=== PATIENT | female | born 1990 | race Caucasian/White ===

== ENCOUNTER 2022-06-04 09:33 | Emergency (ER) | payer BC, SELFPAY ==
[2022-06-04 09:39] VITALS: BP 124/79; PULSE 100; RESP 18; TEMP 36.9; O2SAT 99; BMI 23.9
--- NOTE | 2022-06-04 09:55 | CRLHL7_ITS ---
For Patients: As a result of the Century Cures Act, medical imaging exams and procedure reports are released immediately into your electronic medical record. You may view this report before your referring provider. If you have questions, please contact your health care provider. DATE: 06/04/2022. CLINICAL HISTORY: Sinus pain and pressure. TECHNIQUE: Standard CT scanning of the paranasal sinuses was performed. COMPARISON: None available. FINDINGS: Moderate circumferential mucosal thickening of the maxillary sinuses. There is opacification of the bilateral maxillary ostia and ethmoid infundibula. Subtotal opacification of the right frontal sinus and mild mucosal thickening of the left maxillary sinus. There is opacification of the bilateral frontal sinus outflow tracts. Subtotal opacification of the bilateral ethmoid aircells. Very mild mucosal thickening of the right sphenoid sinus. The left sphenoid sinus is well aerated. The sphenoethmoidal recesses are patent. Mild sinusoidal curvature of the nasal septum. The mastoid air cells well aerated. 1.2 cm ovoid lucency within the superolateral left orbital rim. This is nonspecific but favored to reflect a benign etiology, such as a fibro-osseous lesion. IMPRESSION: 1. Bilateral ostiomeatal unit pattern of disease, as detailed above. 2. 1.2 cm ovoid lucency within the superior lateral left orbital rim. This is favored to reflect a benign etiology, such as a fibro-osseous lesion. Please note that all CT scans at this facility use dose modulation, iterative reconstruction, and/or weight-based dosing when appropriate to reduce radiation dose to as low as reasonably achievable. Dictated by Cesario Rosario MD @ 06/04/2022 10:56:37 AM (Electronically Signed)
--- NOTE | 2022-06-04 09:55 | ED.GENADULT ---
HPI - General Adult General Chief complaint: Headache/Migraine Stated complaint: Sinus pressure Time Seen by Provider: 06/04/22 09:47 History of Present Illness HPI narrative: This 32-year-old female comes in reporting facial pain and pressure around the area above and below her eyes. She states that she has had some sinus pain and pressure over the past couple months but it has worsened in the past few days. She does have cough and rhinorrhea. She does not report any fevers. Related Data Previous Rx's Medication Instructions Recorded amoxicillin 875 mg-potassium 1 tab PO BID #10 tabs 06/04/22 clavulanate 125 mg tablet ketorolac 10 mg tablet 10 mg PO Q8H 5 days #15 tabs 06/04/22 methylprednisolone 4 mg tablets in See Rx Instructions PO .COMPLEX 06/04/22 a dose pack (Medrol (Fransico)) #21 ea Allergies Allergy/AdvReac Type Severity Reaction Status Date / Time No Known Drug Allergies Allergy Verified 06/04/22 09:41 Review of Systems Status of ROS: Reports: 10 or more systems reviewed and unremarkable except as noted in History and below Narrative: Constitutional: No fevers, no weight gain or loss. Eyes: No discharge. No vision changes. HENT: No sore throat. Some mild left ear pain. Nasal congestion. Cardiovascular: No chest pain, no palpitations. Respiratory: No shortness of breath, no wheezes, no cough. Gastrointestinal: No abdominal pain, no vomiting, no diarrhea. Genitourinary: No dysuria, no hematuria. Musculoskeletal: Normal range of motion. Skin: No rashes, no pruritis. Neurological: No dizziness, weakness, sensory change, speech change. Endo/Heme/Allergies: No bruising or bleeding. No polydipsia. Pysch: no suicidality, no anxiety, no insomnia. All other systems reviewed and are negative. PFSH PFSH Social History Smoking Status: Unknown if ever smoked How often do you have a drink containing alcohol: never How often do you have six or more drinks on one occasion: Never AUDIT-C Alcohol total score: 0 Non-prescribed substance use: denies use Exam Narrative: Exam Narrative: Constitutional: Well-developed, well-nourished, no acute distress. HEENT: Normocephalic, atraumatic. Tympanic membranes appear normal bilaterally. Neck: Normal range of motion. Nontender. Supple. Heart: Regular. No murmurs. Normal rate. Intact distal pulses. Lungs: Clear to auscultation. No chest discomfort. No wheezes, rhonchi, or rales. Abdomen: Normal bowel sounds. Nontender. No rebound tenderness. Genitalia: Deferred. Back: No midline tenderness. Normal range of motion. Extremities: Normal range of motion. No injury. Skin: Intact. No rash. Warm. No erythema or pallor. Neurologic: No altered sensation. No weakness. Alert and oriented. Psychiatric: No suicidality. No anxiety or depression. No insomnia. Nursing notes and vitals signs are reviewed. Const: Vital Signs, click to edit/add: Vital Signs - 24 hr 06/04/22 09:39 Temperature 98.5 F Pulse Rate [Right Pulse Oximeter] 100 Respiratory Rate 18 Blood Pressure [Ri ght Upper Arm] 124/79 Pulse Oximetry 99 Oxygen Delivery Me thod Room Air Course Vital Signs Vital signs: Initial Vital Signs Temperature 98.5 F 06/04/22 09:39 Temperature Source Temporal Artery Scan 06/04/22 09:39 Pulse Rate 100 06/04/22 09:39 Respiratory Rate 18 06/04/22 09:39 Blood Pressure 124/79 06/04/22 09:39 Blood Pressure Mean 94 06/04/22 09:39 Blood Pressure Position Sitting 06/04/22 09:39 Pulse Oximetry 99 06/04/22 09:39 Oxygen Delivery Method 06/04/22 09:39 Vital Signs Temperature 98.5 F 06/04/22 09:39 Pulse Rate 100 06/04/22 09:39 Respiratory Rate 18 06/04/22 09:39 Blood Pressure 124/79 06/04/22 09:39 Pulse Oximetry 99 06/04/22 09:39 Oxygen Delivery Method 06/04/22 09:39 Temperature 98.5 F 06/04/22 09:39 Pulse Rate 100 06/04/22 09:39 Respiratory Rate 18 06/04/22 09:39 Blood Pressure 124/79 06/04/22 09:39 Pulse Oximetry 99 06/04/22 09:39 Oxygen Delivery Method 06/04/22 09:39 Medical Decision Making MDM Narrative Medical decision making narrative: This patient comes in with facial pain and headache as described above. A CT of the sinuses is acquired and does show evidence of sinusitis with some fluid in all the sinuses and some are completely opacified with fluid. The patient received prescription for Augmentin and Medrol Dosepak. I advised using nasal steroid spray and after sinusitis symptoms have resolved she could also benefit from an oral antihistamine. Imaging Data CT Sinuses: Radiologist's impression: 1. Bilateral ostiomeatal unit pattern of disease, as detailed above. 2. 1.2 cm ovoid lucency within the superior lateral left orbital rim. This is favored to reflect a benign etiology, such as a fibro-osseous lesion. Discharge Plan Discharge Clinical Impression: Sinusitis Patient Disposition: Home, Self-Care Condition: Stable Additional Instructions: Take medications as prescribed. Follow up with MD or return if worsening. Prescriptions: New ketorolac 10 mg tablet 10 mg PO Q8H 5 Days Qty: 15 0RF methylprednisolone [Medrol (Fransico)] 4 mg tablets,dose pack See Rx Instructions .ROUTE .COMPLEX Qty: 21 0RF Rx Instructions: orally per package directions amoxicillin-pot clavulanate 875-125 mg tablet 1 tab PO BID Qty: 10 0RF Follow Up/Referrals: Sylvester Cole MD [Primary Care Provider] - Stand Alone Forms: Merchant View Info Instructions
== END 2022-06-04 11:46 | disposition home or self-care (01) ==
PROVIDERS: Emergency Provider Emergency Medicine Emergency Medical Services; PCP Family Medicine
DX: J32.9 Chronic sinusitis, unspecified (principal)
CPT/HCPCS: 70486; 99283; 99284

== ENCOUNTER 2022-11-02 10:53 | Outpatient (CLI) | payer BC, SELFPAY ==
--- NOTE | 2022-11-02 11:00 | CRLHL7_ITS ---
For Patients: As a result of the Century Cures Act, medical imaging exams and procedure reports are released immediately into your electronic medical record. You may view this report before your referring provider. If you have questions, please contact your health care provider. INDICATION: Sinusitis. TECHNIQUE: Noncontrast CT images acquired through the paranasal sinuses. COMPARISON: CT sinus 06/04/2022. FINDINGS: Slightly worsening moderately severe mucosal thickening in the maxillary sinuses. The ethmoid infundibula are widely patent. Persistent severe opacification of the right frontal sinus and right frontal recess. Similar moderately severe opacification of the left frontal sinus and left frontal recess. Moderately severe opacification of the ethmoid air cells, similar to prior. Worsening moderate left and [id number] right sphenoid sinus mucosal thickening. The sphenoethmoidal recesses are opacified. Sinusoidal nasal septal deviation with 4 mm rightward deviation of the anterior septum and 1-2 mm leftward deviation of the posterior septum. Improved aeration of the nasal cavity, with persistent partial opacification of the middle meati and superior nasal cavity. Stable lucent lesion with adjacent ground-glass opacity in the superolateral left orbital rim. The mastoid air cells are clear. IMPRESSION: 1. Modestly worsening paranasal sinus mucosal disease compared to 06/04/2022. No air-fluid levels suggest acute sinusitis. 2. Moderately severe mucosal thickening in the maxillary sinuses. Severe right and moderately severe left frontal sinus opacification. Moderately severe opacification of the ethmoid air cells. 3. Sinusoidal nasal septal deviation. There is improved aeration of the nasal cavity. Please note that all CT scans at this facility use dose modulation, iterative reconstruction, and/or weight-based dosing when appropriate to reduce radiation dose to as low as reasonably achievable. Dictated by Javi Devries MD @ 11/02/2022 10:15:26 PM (Electronically Signed)
== END 2022-11-02 10:54 | disposition home or self-care (01) ==
LOC: CT 10:53
PROVIDERS: PCP Family Medicine; Visit Provider Otolaryngology
DX: J32.9 Chronic sinusitis, unspecified (principal); J32.0 Chronic maxillary sinusitis; J34.2 Deviated nasal septum
CPT/HCPCS: 70486

== ENCOUNTER 2022-11-11 09:46 | Day surgery (SDC) | payer BC, SELFPAY ==
[2022-11-11] VITALS (17 sets, daily range): BP systolic 111–131; BP diastolic 71–87; PULSE 87–110; RESP 14–16; TEMP 36.2–37.1; O2SAT 94–100; BMI 24.5
[2022-11-11 10:13] LABS: Ur HCG Qualitative* Negative (Negative)
[2022-11-11] MEDS: SODIUM CHLORIDE 0.9 % (FLUSH) 10 ML SYRINGE IVF (10:39)
[2022-11-11] MEDS: LACTATED RINGERS 1000 ML 1,000 ML 100 ML IV (10:42)
[2022-11-11] MEDS: OXYMETAZOLINE 0.05% NASAL SPRAY 2 SPRAY NOSTRIL-B (10:43)
--- NOTE | 2022-11-11 11:03 | W.ANESCHARGE ---
Anesthesia Charges Start Date/Time Anesthesia Start Date: 11/11/22 Anesthesia Start Time: 11:16 Stop Date/Time Anesthesia Stop Date: 11/11/22 Anesthesia Stop Time: 12:18
[2022-11-11] MEDS: COCAINE HCL 4 % 4 ML SOLUTION NOSTRIL-B (11:30)
[2022-11-11] MEDS: BUPIVACAINE 0.5 %/EPI 1:200K 4 ML INJECTION (11:35)
--- NOTE | 2022-11-11 11:43 | SUR.OPER ---
PATIENT QUESTIONS ANSWERED SATISFACTORILY PREOPERATIVELY. PATIENT BROUGHT TO OR #2 PER CART. Patient positioned supine on OR #2 bed. ? Perioperative team tucked arms bilaterally at patient side with drawsheet. Final approval of positioning by surgeon.
[2022-11-11] MEDS: AYR SALINE NASAL GEL 1 APPLIC NOSTRIL-B (11:55)
--- NOTE | 2022-11-11 12:18 | W.ANESCHARGE ---
Anesthesia Charges Start Date/Time Anesthesia Start Date: 11/11/22 Anesthesia Start Time: 11:16 Stop Date/Time Anesthesia Stop Date: 11/11/22 Anesthesia Stop Time: 12:18
[2022-11-11] MEDS: fentaNYL 100 MCG/2 ML inj 50 MCG IVP ×2 (12:27→12:39)
[2022-11-11] MEDS: HYDROmorphone 0.5 mg/0.5 ml inj IVP (12:55)
--- NOTE | 2022-11-11 12:56 | SUR.OPER ---
PATIENT QUESTIONS ANSWERED SATISFACTORILY PREOPERATIVELY. PATIENT BROUGHT TO OR #2 PER CART. Patient positioned supine on OR #2 bed. ? Perioperative team tucked arms bilaterally at patient side with drawsheet. ? Final approval of positioning by surgeon.
[2022-11-11] MEDS: OXYCODONE 5 MG TABLET PO (13:30)
--- NOTE | 2022-11-11 13:42 | SUR.PHASEII ---
changed nasal pad with moderate amount of bleeding at 1330
[2022-11-11] MEDS: IBUPROFEN 200 MG TABLET PO (13:59)
[2022-11-11] MEDS: ACETAMINOPHEN 325 MG TABLET PO (13:59)
--- NOTE | 2022-11-11 14:17 | P.ENTPROC_ITS ---
Procedure Note Date of procedure: 11/11/22 Procedure: Preoperative diagnosis is pansinusitis with partial sparing of left frontal, septal deviation nasal obstruction inferior turbinate hypertrophy Postoperative diagnosis same Procedure nasal septoplasty, submucous partial resection inferior turbinates, bilateral maxillary antrostomies with tissue removal, bilateral complete ethmoidectomies, bilateral sphenoidotomies, right frontal balloon dilation. All endoscopic. Note that the GlassesOff image guidance was used throughout the procedure Under general endotracheal anesthesia patient was prepped and draped in usual fashion nose was decongested and injected. A right hemitransfixion incision was made left anterior and posterior tunnels were created a vertical incision was made with card and right posterior tunnel created. The septal deflection was resected posteriorly and then a piece of bone trimmed and returned to the posterior intraseptal space. The hemitransfixion was closed with 2 4-0 chromic sutures. A stab incision was made in the anterior of the right inferior turbinate a tunnel created with a Junie dissector the. The justin bone was outfractured and a conservative and [place] rear submucous resection was performed with Yeny forceps. The Coblation was used to cauterize intramurally along the posterior inferior 10%. This was repeated on the left side in identical fashion. On the left side the inferior 4th of the uncinate process was taken down exposing natural ostium to maxillary sinus which was occluded by polyp tissue. This tissue was removed and an 8 mm antrostomy was created in an inferior- posterior direction. Large amount of polyp tissue was removed from the maxillary sinus as well some inspissated mucin mucus. The ethmoid bulla was taken down and dissection carried out in an anterior to posterior direction performing complete ethmoidectomy. The sphenoid sinus was entered through the posterior ethmoid sinus and inspissated mucus was aspirated. These procedures were all repeated on the right side in identical fashion with near identical findings. The only addition on the right side was the frontal sinus balloon was placed into the frontal recess and extended up into the sinus. Two dilations were performed both proximal and distal. Inspissated mucus was then removed with a suction. Silastic stents were secured on either side of the septum with a 3-0 nylon suture. A Merocel pack was trimmed lengthwise and placed intranasally. The patient procedure well was taken recovery in satisfactory condition. Blood loss was less than 25 mL. Surgeon: Adis Lamb MD
--- NOTE | 2022-11-11 14:56 | SUR.PHASEII ---
nasal dressing changed x4 in 1.5 hours. Patient instructed to monitor bleeding as instructed in discharge instructions.
== END 2022-11-11 14:59 | disposition home or self-care (01) ==
PROVIDERS: PCP Family Medicine; Visit Provider Otolaryngology
PROC: (CPT 31231; principal; 2022-11-11 11:15)
DX: J34.2 Deviated nasal septum (principal); J34.3 Hypertrophy of nasal turbinates; J32.4 Chronic pansinusitis
CPT/HCPCS: 30520; 30140; 31267; 31257; 31296; 160; 81025; 88305; A9270; C1726; J0330; J1100; J1170; J2250; J2405; J2704; J3010; J3490; J7120

== ENCOUNTER 2022-12-13 15:15 | Outpatient (RCR) | payer BC, SELFPAY | END 2023-04-12 23:59 | disposition home or self-care (01) | PROVIDERS: PCP Family Medicine; Visit Provider Family Medicine | DX: M25.561 Pain in right knee (principal); Z51.89 Encounter for other specified aftercare | CPT/HCPCS: 97110; 97112; 97140; 97161 ==

== ENCOUNTER 2023-04-13 15:30 | Outpatient (RCR) | payer BC, SELFPAY | END 2023-06-05 09:31 | disposition home or self-care (01) | PROVIDERS: PCP Family Medicine; Visit Provider Orthopaedic Surgery | DX: Z98.890 Other specified postprocedural states (principal); M25.661 Stiffness of right knee, not elsewhere classified; M62.81 Muscle weakness (generalized); R26.2 Difficulty in walking, not elsewhere classified; M25.561 Pain in right knee; Z51.89 Encounter for other specified aftercare | CPT/HCPCS: 97110; 97112; 97161; 97535 ==

== ENCOUNTER 2023-08-16 15:52 | Outpatient (CLI) | payer BC, SELFPAY ==
--- OUTSIDE RECORDS SUMMARY | 2023-08-16 15:57 | XMS_ITS | Data Portability ---
Author Name Unknown Address [address] [place] [id number] Phone [phone] Organization [facility] [employer] [facility], [facility] Address [address] [place] [address] Assessment No assessment recorded. Plan of Treatment Reminders Order Date Submit Date Provider Last Modified By Organization Details Last Modified Time Details Appointments None recorded. Lab rapid SARS CoV 2 Ag, QL IA, respiratory specimen 2021 022 [email or web address] [facility], [address] [place] [address], [phone], 12:48:29 Referral None recorded. Procedures None recorded. Surgeries None recorded. Imaging None recorded. Medication Orders None recorded. Patient TargetsNo targets recorded. Patient Instructions Encounter Date Encounter Id Patient Instructions Last Modified By Organization Details Last Modified Time 07/20/2021 [id number] Discuss the following with patient/parent To Keep a safe distance. ... ?? Wear a mask. ... ?? Encourage proper hygiene. ... ?? The best way to protect yourself and others is to stay home for 14 days if you think you? ve been exposed to someone who has COVID-19. ?? Watch for fever (100.4??F or higher), cough, shortness of breath, or other symptoms of COVID-19. ?? Do not travel until 14 days after your last possible exposure. ?? Monitor yourself and household members for symptoms of COVID-19. Look for emergency warning signs* for COVID-19. If you have any of these signs, seek emergency medical care immediately ?? Trouble breathing ?? Persistent pain or pressure in the chest ?? New confusion ?? Inability to wake or stay awake [email or web address] Not available 07/20/2021 12:48:37 Reason for Referral None Reported. Medical Equipment None Reported. Medications Name Sig Start Date Stop Date Status Note LastModified by Organization Details LastModified Time DOK 100 mg capsule active Not Available Not Available Not Available ibuprofen 200 mg tablet active Not Available Not Available Not Available oxycodone 5 mg tablet active Not Available Not Available No t Available Vitals None Recorded Social History None recorded. Functional Status None recorded. Mental Status None recorded. Family History Nothing Reported. Medical History No medical history recorded. Gynecological HistoryNo gynecological history recorded. Obstetrics History GPAL:G 0 P 0 0 0 0 Past Encounters Encounter ID Performer Location Encounter Start Date Encounter Closed Date Diagnosis/Indication [id number] [facility] [address] [place] [id number] 07/20/2021 12:15:40 07/20/2021 12:51:27 Exposure to SARS-CoV-2 Counseling Health Concerns Section Related Observation LastModified by Organization Detai ls LastModified Time None Recorded Concern Status LastModified by Organization Details LastModified Time None Recorded Advance Directives Directive None Recorded Payers Encounter Date Sequence Insurance Name Policy Number Policy Craig Covered Member ID Craig Member ID Guarantor Name 07/20/2021 1 [id number] - [place]MO[place] [id number] Shoshana Cobb [id number] Shoshana Cobb Notes Date Note Type Note Provider Name and Address Organization Details Recorded Time 07/20/2021 text/html HPI Notes: Patient here for covid testing due to exposure. patient has no symptoms [facility] [address] [place], [address], [facility] [employer] [facility] 07/20/2021 12:48:42 OBGyn Episode No OBEpisode recorded.
--- NOTE | 2023-08-16 16:00 | CRLHL7_ITS ---
For Patients: As a result of the Century Cures Act, medical imaging exams and procedure reports are released immediately into your electronic medical record. You may view this report before your referring provider. If you have questions, please contact your health care provider. Indication: Technique: Performed without IV contrast Comparison: None available Findings: Frontal sinuses: There has been some improved aeration within the left frontal sinus although moderate mucosal thickening remains. Near complete opacification of the right frontal sinus. Ethmoid sinuses: Near complete opacification of the ethmoid sinuses. Maxillary sinuses: Near complete opacification of the right maxillary sinus and moderate mucosal thickening left maxillary sinus. The maxillary sinus drainage pathways are occluded on both sides. Sphenoid sinuses: Moderate mucosal thickening bilaterally. Obstructed sphenoethmoidal recesses. Nasal Cavity: Postop changes septoplasty. Soft tissue fullness within the right nasopharynx noted. No TMJ abnormalities identified. The visualized portions of the orbits, intracranial contents and upper soft tissue neck are grossly negative. Impression: 1. Near-complete opacification of the right maxillary sinus. Right maxillary sinus disease has progressed since the prior study. 2. Improved appearance of the left frontal sinus although moderate mucosal thickening remains. 3. Moderate/moderate-severe sinus disease elsewhere with obstruction of the sinus drainage pathways. Please note that all CT scans at this facility use dose modulation, iterative reconstruction, and/or weight-based dosing when appropriate to reduce radiation dose to as low as reasonably achievable. Dictated by Devin Noriega MD @ 08/17/2023 9:03:33 AM (Electronically Signed)
== END 2023-08-16 15:53 | disposition home or self-care (01) ==
LOC: CT 15:55
PROVIDERS: PCP Family Medicine; Visit Provider Otolaryngology
DX: J32.9 Chronic sinusitis, unspecified (principal); J32.0 Chronic maxillary sinusitis
CPT/HCPCS: 70486

== ENCOUNTER 2023-10-08 12:22 | Emergency (ER) | payer BC, SELFPAY ==
[2023-10-08 12:30] VITALS: BP 121/75; PULSE 116; RESP 18; TEMP 36.7; O2SAT 97; BMI 25.5
--- NOTE | 2023-10-08 12:58 | ED_ITS ---
HPI - General Adult General Chief complaint: Sore Throat Stated complaint: Wants to get strep swab Time Seen by Provider: 10/08/23 12:25 History of Present Illness HPI narrative: This 33-year-old female comes in reporting sore throat that began this morning. She does not report any fevers or cough. She states that she has some chronic allergic nasal congestion. Related Data Home Medications Medication Instructions Recorded Confirmed fluticasone propionate 50 spray intranasal 10/08/23 mcg/actuation nasal spray,suspension levocetirizine 5 mg tablet 5 mg PO DAILY 10/08/23 10/08/23 olopatadine 0.1 % eye drops drp ophthalmic (eye) 10/08/23 Previous Rx's Medication Instructions Recorded methylprednisolone 4 mg tablets in See Rx Instructions PO PER PKG DIR 05/18/23 a dose pack #21 ea prednisone 20 mg tablet See Rx Instructions PO QDAY Cough 06/28/23 #12 tabs Allergies Allergy/AdvReac Type Severity Reaction Status Date / Time adhesive Allergy Rash Verified 10/08/23 12:34 latex Allergy Verified 10/08/23 12:34 Review of Systems Status of ROS: Reports: 10 or more systems reviewed and unremarkable except as noted in History and below Narrative: Constitutional: No fevers, no weight gain or loss. Eyes: No discharge. No vision changes. HENT: Nasal congestion and sore throat. No ear pain. Cardiovascular: No chest pain, no palpitations. Respiratory: No shortness of breath, no wheezes, no cough. Gastrointestinal: No abdominal pain, no vomiting, no diarrhea. Genitourinary: No dysuria, no hematuria. Musculoskeletal: Normal range of motion. Skin: No rashes, no pruritis. Neurological: No dizziness, weakness, sensory change, speech change. Endo/Heme/Allergies: No bruising or bleeding. No polydipsia. Pysch: no suicidality, no anxiety, no insomnia. All other systems reviewed and are negative. [facility] Medical History (Updated 10/08/23 @ 13:24 by Francisco Javier Arita MD) Chronic sinusitis ?J32.9 - Chronic sinusitis, unspecified (ICD-10) Surgical History (Updated 05/18/23 @ 17:18 by Sara Knight NP) History of sinus surgery ?Z98.890 - Other specified postprocedural states (ICD-10) Social History Smoking Status: Never smoker Do you use any of these nicotine containing products: Vaping Products Nicotine containing products detail: vaping daily How often do you have a drink containing alcohol: never How often do you have six or more drinks on one occasion: Never AUDIT-C Alcohol total score: 0 Non-prescribed substance use: denies use Caffeine: Yes (coffee 1 cup/day) Exam Narrative: Exam Narrative: Constitutional: Well-developed, well-nourished, no acute distress. HEENT: Normocephalic, atraumatic. Oropharynx has mild erythema without tonsillar exudate or hypertrophy. Neck: Normal range of motion. Nontender. Supple. Heart: Regular. No murmurs. Normal rate. Intact distal pulses. Lungs: Clear to auscultation. No chest discomfort. No wheezes, rhonchi, or rales. Abdomen: Normal bowel sounds. Nontender. No rebound tenderness. Genitalia: Deferred. Back: No midline tenderness. Normal range of motion. Extremities: Normal range of motion. No injury. Skin: Intact. No rash. Warm. No erythema or pallor. Neurologic: No altered sensation. No weakness. Alert and oriented. Psychiatric: No suicidality. No anxiety or depression. No insomnia. Nursing notes and vitals signs are reviewed. Const: Vital Signs, click to edit/add: Vital Signs - 24 hr 10/08/23 12:30 Temperature 98.1 F Pulse Rate [Right Pulse Oximeter] 116 H Respiratory Rate 18 Blood Pressure [Ri ght Upper Arm] 121/75 Pulse Oximetry 97 Oxygen Delivery Me thod Room Air Course Vital Signs Vital signs: Initial Vital Signs Temperature 98.1 F 10/08/23 12:30 Temperature Source Temporal Artery Scan 10/08/23 12:30 Pulse Rate 116 H 10/08/23 12:30 Pulse Rhythm Regular 10/08/23 12:30 Respiratory Rate 18 10/08/23 12:30 Blood Pressure 121/75 10/08/23 12:30 Blood Pressure Mean 90 10/08/23 12:30 Blood Pressure Position Sitting 10/08/23 12:30 Pulse Oximetry 97 10/08/23 12:30 Oxygen Delivery Method Room Air 10/08/23 12:30 Vital Signs Temperature 98.1 F 10/08/23 12:30 Pulse Rate 116 H 10/08/23 12:30 Respiratory Rate 18 10/08/23 12:30 Blood Pressure 121/75 10/08/23 12:30 Pulse Oximetry 97 10/08/23 12:30 Oxygen Delivery Method Room Air 10/08/23 12:30 Temperature 98.1 F 10/08/23 12:30 Pulse Rate 116 H 10/08/23 12:30 Respiratory Rate 18 10/08/23 12:30 Blood Pressure 121/75 10/08/23 12:30 Pulse Oximetry 97 10/08/23 12:30 Oxygen Delivery Method Room Air 10/08/23 12:30 Medications Administered Medications: Discontinued Medications Generic Name Dose Route Start Last Admin Trade Name Teri PRN Reason Stop Dose Admin Dexamethasone 10 mg 10/08/23 12:57 10/08/23 13:10 Dexamethasone 10 Mg/Ml Inj PO 10/08/23 12:58 10 mg ONCE ONE Administration Medical Decision Making MDM Narrative Medical decision making narrative: This patient comes in reporting sore throat and a rapid strep test does return positive. She did receive an oral dose of dexamethasone 10 mg and a intramuscular injection of Pen-VK. Lab Data Labs: Lab Results 10/08/23 Range/Units 12:29 Group A Strep DNA DETECTED A (Not Detectd) Discharge Plan Discharge Clinical Impression: Acute streptococcal pharyngitis Patient Disposition: Home, Self-Care Condition: Stable Additional Instructions: Use [id number] medicines as needed and directed. Follow up with MD return if worsening. Prescriptions: No Action methylprednisolone 4 mg tablets,dose pack See Rx Instructions PO PER PKG DIR Qty: 21 0RF Rx Instructions: PO PER PKG DIR prednisone 20 mg tablet See Rx Instructions PO QDAY Qty: 12 0RF Rx Instructions: 20mg tab: 3 po as single dose days 1-2, 2 po as single dose days 3-4, 1 po days 5-6, then discontinue. olopatadine 0.1 % drops ophthalmic (eye) fluticasone propionate 50 mcg/actuation spray,suspension INTRANASAL levocetirizine 5 mg tablet 5 mg PO DAILY Follow Up/Referrals: Sylvester Cole MD [Primary Care Provider] - Stand Alone Forms: [facility] Info Instructions
[2023-10-08 13:00] LABS: Strep A DNA Probe* DETECTED (Not Detectd)
[2023-10-08] MEDS: dexAMETHasone 10 MG/ML inj PO (13:10)
[2023-10-08] MEDS: PENICILLIN G BENZATHINE 1,200,000 UNIT/2 ML inj 1200000 UNIT IM (13:32)
== END 2023-10-08 13:41 | disposition home or self-care (01) ==
PROVIDERS: Emergency Provider Emergency Medicine Emergency Medical Services; PCP Family Medicine
DX: J02.0 Streptococcal pharyngitis (principal)
CPT/HCPCS: 87651; 99283; 99284; J0561; J1100

== ENCOUNTER 2024-03-18 11:49 | Emergency (ER) | payer BC, SELFPAY ==
[2024-03-18 11:58] VITALS: BP 143/80; PULSE 108; RESP 18; TEMP 36.9; O2SAT 99; BMI 26.2
--- NOTE | 2024-03-18 12:11 | ED.SKABFB ---
HPI - Skin/Abscess/Foreign Bdy General Time Seen by Provider: 12:05 Date Seen: 03/18/24 Chief complaint: Skin/Abscess/Foreign Body Stated complaint: Rash Time Seen by Provider: 03/18/24 11:56 Source: patient, RN notes reviewed and old records reviewed Mode of arrival: ambulatory Limitations: no limitations History of Present Illness HPI narrative: This 34-year-old female is coming in with a rash that has spread all over her body. She use some triamcinolone cream to the initial spot on her right chest wall, did help. She had sinus surgery a few days after being seen initially in Urgent Care for this right chest rash. The rash has subsequently spread, is not on her hands and feet. It is intensely itchy, Benadryl helps for a little while, has not tried any Claritin or Zyrtec. There been no fevers or chills, she is not aware of any new meds, perfumes, lotions, soaps or foods. No one else in the household is getting this rash. This is been present for about 3-4 weeks. No respiratory symptoms, no fevers or chills, no GI symptoms, chronic diarrhea. No history of any chronic medical issues like malabsorption with celiac disease. She was seen in our urgent care on February 26 and diagnosed with probable contact dermatitis. Rash is not painful but is intensely pruritic. The itching does disrupt her ability to sleep. She does note that heat makes it more itchy. complaint: rash Related Data Previous Rx's ?Medication ?Instructions ?Recorded triamcinolone acetonide 0.5 % 1 applic topical BID 7 days #15 02/27/24 topical cream grams prednisone 20 mg tablet 20 mg PO BID #10 tabs 03/18/24 Allergies Allergy/AdvReac Type Severity Reaction Status Date / Time adhesive Allergy Rash Verified 03/18/24 11:58 latex Allergy Verified 03/18/24 11:58 mold Allergy Verified 03/18/24 11:58 Review of Systems Status of ROS: Reports: 6 or more systems reviewed and unremarkable except as noted in History and below [facility] Medical History Chronic sinusitis ?J32.9 - Chronic sinusitis, unspecified (ICD-10) Surgical History History of sinus surgery ?Z98.890 - Other specified postprocedural states (ICD-10) Social History Smoking Status: Current every day smoker Do you use any of these nicotine containing products: Vaping Products Nicotine containing products detail: vaping daily How often do you have a drink containing alcohol: monthly or less How often do you have six or more drinks on one occasion: Never AUDIT-C Alcohol total score: 1 Non-prescribed substance use: denies use Caffeine: Yes (coffee 1 cup/day) Exam Const: Vital Signs, click to edit/add: Vital Signs - 24 hr 03/18/24 11:58 Temperature 98.5 F Pulse Rate [Pulse Oximeter] 108 H Respiratory Rate 18 Blood Pressure [Ri ght Upper Arm] 143/80 H Pulse Oximetry 99 Oxygen Delivery Me thod Room Air Shoshana is a 34-year-old female that is alert, interactive, no apparent distress. Sclera clear, conjugate gaze, able speak in complete sentences. Face uninvolved, no lip swelling noted. Neck supple, no adenopathy. On her right upper chest wall she has papular lesions without vesicles, some are more tannish appearing rather than pinkish reddish. There is more of a patch of distribution of these papular lesions on her right upper chest wall. Elsewhere on her shoulders upper chest, abdominal wall, arms and legs she has these small papular lesions, some are more skin colored, some have some brownish pigment, some are pinkish to erythematous. They do not seem to have any vesicles, no lichenification. Do not see any Koebner phenomenon. CV regular rate and rhythm, no murmur. Lungs are clear, good air entry, no wheezing or crackles. She does have some bruising along her thighs which she states is from extreme itching. Do not note this anywhere else, no petechial changes noted. Do see some scratch zaldivar as well, do not appreciate any secondary infection. Documenting provider has reviewed patient's vital signs: yes Course Course ED Course: Discussed trial of Zyrtec for better control of pruritus. Will give her a course of steroids to see if this helps. Discussed with her that if this rash is ongoing, returns after prescription prednisone, does need to see Dermatology in may need a biopsy. Given the confluence throughout her body of this rash, the parents of the small individual papular lesions elsewhere on the body outside of the initial patch on the chest, think that this is likely an alternate etiology. Did consider such things as scabies but if she has had this for 3-4 weeks and no one else is getting this rash in the house, does make it much less likely to be the causative etiology. Will try prednisone, she understands that she is at a point with this rash that she very well may need to see Dermatology. Vital Signs Vital signs: Initial Vital Signs Temperature 98.5 F 03/18/24 11:58 Temperature Source Temporal Artery Scan 03/18/24 11:58 Pulse Rate 108 H 03/18/24 11:58 Pulse Rhythm Regular 03/18/24 11:58 Respiratory Rate 18 03/18/24 11:58 Blood Pressure 143/80 H 03/18/24 11:58 Blood Pressure Mean 101 03/18/24 11:58 Blood Pressure Position Sitting 03/18/24 11:58 Pulse Oximetry 99 03/18/24 11:58 Oxygen Delivery Method Room Air 03/18/24 11:58 Vital Signs Temperature 98.5 F 03/18/24 11:58 Pulse Rate 108 H 03/18/24 11:58 Respiratory Rate 18 03/18/24 11:58 Blood Pressure 143/80 H 03/18/24 11:58 Pulse Oximetry 99 03/18/24 11:58 Oxygen Delivery Method Room Air 03/18/24 11:58 Temperature 98.5 F 03/18/24 11:58 Pulse Rate 108 H 03/18/24 11:58 Respiratory Rate 18 03/18/24 11:58 Blood Pressure 143/80 H 03/18/24 11:58 Pulse Oximetry 99 03/18/24 11:58 Oxygen Delivery Method Room Air 03/18/24 11:58 Discharge Plan Discharge Clinical Impression: Rash Patient Disposition: Home, Self-Care Condition: Stable Instructions: Acute Rash (ED) Additional Instructions: It is unclear as to the etiology of this rash but I do not believe this to be a contact dermatitis. This rash may improve on the prednisone but if it returns once the prednisone is done, you do need to see Dermatology. You can get a dermatology appointment through your clinic. Please contact your primary care provider to get this scheduled. I would recommend using Zyrtec 10 mg daily to twice daily for control of itching, can still use Benadryl on top of the Zyrtec. You may find that the Zyrtec actually controls the itching better than the Benadryl. Avoid heat, cool compresses to any itchy area can help decrease itching. Activity Level: Activity as Tolerated Prescriptions: New prednisone 20 mg tablet 20 mg PO BID Qty: 10 0RF No Action triamcinolone acetonide 0.5 % cream 1 applic topical BID 7 Days Qty: 15 1RF Follow Up/Referrals: Sylvester Cole MD [Primary Care Provider] - Stand Alone Forms: [employer] Info Instructions
--- OUTSIDE RECORDS SUMMARY | 2024-03-18 12:16 | XMS_ITS | Encounter Summary ---
Author Organization [facility] Address [address] [place] [address] Care Team Providers Care Grader Patrol Name Role Phone Elsewhere, Pcp Primary Care Provider Unavailabl e Encounter Details Date Type Department Care Team (Latest Contact Info) Description 01/17/2024 9:15 AM CDT Ancillary Procedure Department of Otorhinolaryngology Social History Tobacco Use Types Packs/Day Years Used Date Smoking Tobacco: Former Cigarettes Smokeless Tobacco: Never Comments:Smoked 10+ years, q uit tobacco smoke 2021, then switched to vape, uses 60mg per tank, 1 tank per week [facility] Utilities Answer Date Recorded In the past 12 months has th e electric, gas, oil, or water company threatened to shut off services in your home? No 01/16/2024 Exercise Vital Sign Answer Date Recorde d On average, how many days pe r week do you engage in moderate to strenuous exercise (like a brisk walk)? 3 days 01/16/2024 On average, how many minutes do you engage in exercise at this level? 50 min 01/16/2024 Hunger Vital Sign Answer Date Recorded Within the past 12 months, y ou worried that your food would run out before you got the money to buy more. Never true 01/16/20 24 Within the past 12 months, t he food you bought just didn't last and you didn't have money to get more. Never true 01/16/2024 PRAPARE - Transportation Answer Date Re corded In the past 12 months, has l ack of transportation kept you from medical appointments or from getting medications? No 08/2023 In the past 12 months, has l ack of transportation kept you from meetings, work, or from getting things needed for daily living? No 01/16/2024 Nutrition Answer Date Recorded On average, how many serving s of fruits and vegetables do you eat per day (serving size is equal to 1 cup or approximately the size of a tennis ball)? 3-5 01/16/2024 Dental Answer Date Recorded Dental: Regular Dentist Yes 01/16/20 Employment Answer Date Recorded Employment status Employed and actively working without restrictions 01/16/2024 Housing Stability Answer Date Recorded What is your living situation today? I have a [facility] place to live 01/16/2024 Sex and Gender Information Value Date Recorded Sex Assigned at Female 01/16/2024 1:03 PM CDT Gender Identity Female 01/16/2024 1:03 PM CDT Sexual Orientation Straight 01/16/2024 1: 03 PM CDT documented as of this encounter Plan of Treatment Upcoming Encounters Date Type Department Care Team (Late st Contact Info) Description 05/10/2024 3:00 PM CDT Office Visit Department of Otorhinolaryngology in [place], [place] [address] [place] [address] Christy Barton M.D. [address] [place] [address] documented as of this encounter Procedures Procedure Name Priority Date/Time Associated Diagnosis Comments OTORHINOLARYNGOLOGY IMAGE EXAM Routine 01/17/2024 9:15 AM CDT documented in this encounter Results * Nasal Endoscopy-Otorhinolaryngology Image Exam (01/17/2024 9:15 AM CDT) 01/17/2024 9:15 AM CDT Narrative [facility] - 01/17/2024 10:25 AM CDT This order has been created and auto-finalized to support the import of images acquired without order. The clinical documentation to support these images can be found on the encounter that produced images. Provider Not In System IMG NON RAD IMAGI NG PROCEDURES [facility] NA documented in this encounter Visit Diagnoses Not on filedocumented in this encounter Care Teams Grader Patrol Relationship Specialty Start Date End Date Elsewhere, Pcp PCP - General Internal Medicine 01/16/24 documented as of this encounter
--- OUTSIDE RECORDS SUMMARY | 2024-03-18 12:16 | XMS_ITS | Referral Summary ---
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 For routine questions regarding patient records, call [phone] during business hours, M-F 8:00 AM - 5:00 PM Central Time. Record requests for emergency care only can be directed to [phone] at any time.[facility] Encounters Date Type Department Care Team Description 03/15/2024 11:25 AM CDT Ancillary Procedure Department of Otorhinolaryngology Arrived 03/15/2024 11:15 AM CDT Office Visit Department of Otorhinolaryngology in [place], [place] [address] [place] [phone] Roger Anaya APRN, C.N.P., M.S.N. Rhinosinusitis Chronic (Primary Dx); Polyp Nasal 03/01/2024 11:55 AM CDT Ancillary Procedure Department of General Surgery 03/01/2024 12:07 PM CDT Anesthesia Event [facility] [address] [place] [phone] Alvaro Monae M.D. Steege, Jenna R, APRN, CRNA, D.N.P. 03/01/2024 9:07 AM CDT - 03/01/2024 1:02 PM CDT Surgery [facility] [address] [place] [phone] Christy Barton M.D. ENDOSCOPIC MAXILLARY ANTROSTOMY, TISSUE REMOVAL. 03/01/2024 7:05 AM CDT - 03/01/2024 5:00 PM CDT Hospital Encounter [facility] [address] [place] [phone] Christy Barton M.D. Rhinosinusitis Chronic; Sinusitis Discharge Disposition: Home or Self Care 02/28/2024 3:00 PM CDT Telemedicine Department of Otorhinolaryngology in [address] [phone] Roger Anaya, KALEY, C.N.P., M.S.N. Rhinosinusitis Chronic (Primary Dx) 02/13/2024 Clinical Communication Department of Otorhinolaryngology in [address] [phone] Christy Barton M.D. Budesonide Update 01/22/2024 Clinical Communication Pharmacy Prior Auth [phone] Renaldo Sewell RX PA Not Needed (Budesonide 0.5mg/2ml) 01/17/2024 9:15 AM CDT Ancillary Procedure Department of Otorhinolaryngology 01/17/2024 Clinical Communication Department of Otorhinolaryngology in [address] [phone] Christy Barton M.D. 01/17/2024 9:15 AM CDT Comprehensive Visit Department of Otorhinolaryngology in [address] [address] Christy Barton M.D. Rhinosinusitis Chronic (Primary Dx); Polyp Nasal; Sinusitis 01/16/2024 12:45 PM CDT Clinical Communication Virtual Review in [address] [phone] Pre-visit Intake from Last 3 Months Allergies Active Allergy Reactions Criticality Noted Date Comments Adhesive Rash 07/20/2011 Latex Rash 01/16/2024 Skin peeling Mold Other (see comments) 01/16/2024 Sneezing Medications Medication Sig Dispensed Refills Start Date End Date Status tiZANidine (Zanaflex) 4 mg tablet Take 4 mg by mouth every 8 (eight) hours as needed. needed 11/16/2023 Active triamcinolone (Kenalog) 0.1 % ointment Apply 1 Application topically 3 (three) times a day as needed for irritation or rash. 10/10/2023 Active budesonide (Pulmicort) 0.5 mg/2 mL nebulizer solution Mix 1 ampule in sinus irrigation bottle and irrigate twice daily. 360 mL 3 01/17/2024 Active oxyCODONE (Roxicodone) 5 mg immediate release tabletIndications: Acute Pain Exception Take 1 tablet (5 mg total) by mouth every 4 (four) hours as needed for moderate pain or score 4-6 of 10 Indication: Acute Pain Exception. 8 tablet 03/01/2024 Active amoxicillin-pot clavulanate (Augmentin) 875-125 mg per tablet Take 1 tablet by mouth 2 (two) times a day for 10 days. 20 tablet 03/01/2024 03/11/2024 Active Problems Problem Noted Date Diagnosed Date Rhinosinusitis Chronic 01/17/2024 Sinusitis 01/17/2024 Immunizations Name Administration Dates Next Due Influenza, Unspecified 06/03/2013 Tdap 07/25/2013 Social History Tobacco Use Types Packs/Day Years Used Date Smoking Tobacco: Former Cigarettes Smokeless Tobacco: Never Tobacco Cessation:Counseling Given: Not Answered Comments:Smoked 10+ years, quit tobacco smoke 2021, then switched to vape, uses 60mg per tank, 1 tank per week Alcohol Use Standard Drinks/Week Comments Never 0 (1 standard drink = 0.6 oz pur e alcohol) [facility] Utilities Answer Date Recorded In the past 12 months has [employer], gas, oil, or water [employer] threatened to shut off services in your [...] money to buy more. Never true 01/16/20 Within the past 12 months, t he [...] your living situation today? I have a [facility] place to live 01/16/2024 Sex and Gender Information Value Date Recorded Sex Assigned at Female 01/16/2024 1:03 PM CDT Gender Identity Female 01/16/2024 1:03 PM CDT Sexual Orientation Straight 01/16/2024 1: 03 PM CDT Last Filed Vital Signs Vital Sign Reading Time Taken Comments Blood Pressure 112/70 03/01/2024 4:00 PM CDT Pulse 99 03/01/2024 4:00 PM CDT Temperature 36.6 ??C (97.9 ??F) 03/01/2024 3:55 PM CD T Respiratory Rate 18 03/01/2024 4:00 PM CDT Oxygen Saturation 97% 03/01/2024 4:00 PM CDT Inhaled Oxygen Concentration - - Weight 65.6 kg (144 lb 10 oz) 03/01/2024 7:55 AM CDT Height 160 cm (5' 3) 03/01/2024 7:55 AM CDT Body Mass Index 25.62 03/01/2024 7:55 AM CDT Plan of Treatment Upcoming Encounters Date Type Department Care Team (Late st Contact Info) Description 05/10/2024 3:00 PM CDT Office Visit Department of Otorhinolaryngology in [place], [place] [address] [place] [address] Christy Barton M.D. [address] [place] [address] Procedures Procedure Name Priority Date/Time Associated Diagnosis Comments OTORHINOLARYNGOLOGY IMAGE EXAM Routine 03/15/2024 11:25 AM CDT SURGICAL PATHOLOGY, [facility] Routine 03/01/2024 1:31 PM CDT Rhinosinusitis Chronic Sinusitis LDA ANE ENDOTRACHEAL AIRWAY Routine 03/01/2024 12:33 PM CDT SURGERY IMAGE EXAM Routine 03/01/2024 11:55 AM CDT SINUSOTOMY ENDOSCOPY FRONTAL 03/01/2024 11:47 AM CDT Rhinosinusitis Chronic Sinusitis Case Notes [employer] 03/01/2024 11:47 AM CDT Rhinosinusitis Chronic Sinusitis Case Notes [employer] 708 ENDOSCOPIC SPHENOIDOTOMY WITH TISSUE REMOVAL 03/01/2024 11:47 AM CDT Rhinosinusitis Chronic Sinusitis Case Notes [employer] 708 ETHMOIDECTOMY ENDOSCOPY 03/01/20 11:47 AM CDT Rhinosinusitis Chronic Sinusitis Case Notes [employer] 708 ENDOSCOPIC MAXILLARY ANTROSTOMY WITH TISSUE REMOVAL 03/01/2024 11:47 AM CDT Rhinosinusitis Chronic Sinusitis Case Notes [employer] 708 OTORHINOLARYNGOLOGY IMAGE EXAM Routine 01/17/2024 9:15 AM CDT HXZZORDERS Routine 04/05/2013 11:55 AM CDT from Last 3 Months or Most Recently Relevant to Health Maintenance Results * Nasal Endoscopy-Otorhinolaryngology Image Exam (03/15/2024 11:25 AM CDT) Only the most recent of2 resultswithin the time period is included. 03/15/2024 11:2 5 AM CDT Narrative [facility] - 03/15/2024 12:05 PM CDT This order has been created and auto-finalized to support the import of images acquired without order. The clinical documentation to support these images can be found on the encounter that produced images. Provider Not In System IMG NON RAD IMAGI NG PROCEDURES [facility] NA * Surgical Pathology, Frozen Lab (03/01/2024 1:31 PM CDT) 03/06/2024 9:25 AM CDT [facility] Participated in the Interpretation Claribel Botello., Ph.D.-Pathology Resident 03/06/2024 9:25 AM CDT [facility] Report electronically signed by Sonali Fuentes M.D. I verify that I have examined all relevant slides/material s for the specimen(s) and rendered or confirmed the diagnosis. 03/06/2024 9:25 AM CDT [facility] Gross Description A. ??Received fresh in a collection sock labeled left sinonasal contents is a 1.2 x 1 x 0.6 cm aggregate of campbell-pink soft tissue, cartilage, and bony fragments admixed with blood. ??All submitted for permanent sections. ??Grossed by Maci WootenH.S., P.A. (ASCP). B. ??Received fresh in a collection sock labeled right sinonasal contents is a 3.8 x 2 x 1 cm aggregate of campbell-pink soft tissue, cartilage, and bony fragments admixed with blood. ??All submitted for permanent sections. ??Grossed by Maci WootenH.Tresa., P.A. (ASCP). 03/06/2024 9:25 AM CDT [facility]MA Block Summary A Left sinonasal contents A1 Sinonasal contents B Right sinonasal contents B1 Sinonasal contents- 1 B2 Sinonasal contents- 2 03/06/2024 9:25 AM CDT [facility]MA Addendum GMS (blocks A1 and B2): No fungal organisms identified Signed by Sonali Fuentes M.D. 03/07/2024 2:00 PM 03/07/2024 2:00 PM CDT STMA Comment:REVISED RESULTS Interpretation FINAL DIAGNOSIS A. ??Sinonasal cavity, left sinonasal contents, excision: Sinonasal mucosa with fibrosis and chronic inflammation Many tissue eosinophils identified Eosinophilic mucin identified B. ??Sinonasal cavity, right sinonasal contents, excision: Polypoid sinonasal mucosa with fibrosis and chronic inflammation Many tissue eosinophils identified Eosinophilic mucin identified Comment: ??Special stains GMS are pending and the results will be reported separately. Digital imaging was used in the diagnostic assessment of this case. 03/07/2024 2:00 PM CDT [facility] Tissue (Nose) 03/01/2024 1:3 1 PM CDT Tissue (Nose) 03/01/2024 2:0 0 PM CDT Christy Barton M.D. LAB SURG PATH ORD ERABLES [facility] [address] [place] [address], [facility] [address] [place] [address] * LDA ANE ENDOTRACHEAL AIRWAY (03/01/2024 12:33 PM CDT) Narrative Frances Garcia APRN, CRNA, D.N.P. - 03/01/2024 12:33 PM CDT Frances Garcia APRN, CRNA, D.N.P. ? 03/01/2024 12:34 PM Airway Date/Time: 03/01/2024 12:33 PM Performed by: Frances Garcia APRN, CRNA, D.N.P. Authorized by: Francisco Javier Pugh M.D. ?? Patient location during procedure: OR / Procedure Area PROCEDURE DETAILS: Mask difficulty assessment: easy mask Final airway type: video laryngoscope Laryngeal Manipulation: no ?? Final best view of glottic structures - Cormack/Lehane Score: grade 1 ETT location: oral VL device: glide scope [place] scope blade size: 3 Tube size: 7 ETT distance at teeth/gum: 23 Oral tube type: standard ETT Cuffed: yes Leak Test Performed: no ?? Number of attempt to successful placement: 1 Airway confirmation: bilateral breath sounds, positive ETCO2 and bilateral chest rise Other previous techniques attempted: none PRE PROCEDURE DETAILS: Pre evaluation for airway management: procedure Urgency: elective Preop assessment of probable difficulty: no difficulty anticipated Preoxygenation: bag valve mask SEDATION / ANESTHESIA Anesthesia method: anesthesia POST PROCEDURE DETAILS: ? Procedure outcome: successful ?? Notable Events: no complications Francisco Javier Pugh M.D. ANESTHESIA ORDERA BLES * ENDOSCOPIC MAXILLARY ANTROSTOMY WITH TISSUE REMOVAL-Surgery Image Exam (03/01/2024 11:55 AM CDT) 03/01/2024 11:5 1 AM CDT Narrative [facility]IM[facility] - 03/01/2024 3:45 PM CDT This order has been created and auto-finalized to support the import of images acquired without order. The clinical documentation to support these images can be found on the encounter that produced images. Provider Not In System IMG NON RAD IMAGI NG PROCEDURES Performing Organization Address [facility] de Phone Number [facility] NA * HXZZORDERS (04/05/2013 11:55 AM CDT) HIV-1/-2 Antibody Negative Negative POWERCHART Comment: Negative result does not rule out HIV infection. If acute HIV-1 infection is suspected in a high-risk patient, submit plasma specimen for HIV-1 RNA quantification test. If this test is ordered as a follow-up test to a reactive rapid HIV antibody test result, supplemental testing by Western blot is recommended, even when this test result is negative. Testing is performed using the [employer] Anti-HIV 1+2 chemiluminescence immunoassay. Test Performed by: [address] [address] [employer]: Panchito Moses III, M.D. Blood 04/05/2013 11:5 5 AM CDT Juanita Stein M.D. LAB HISTORICAL OR DERS Performing Organization Address City/[facility] Co de Phone Number POWERCHART from Last 3 Months or Most Recently Relevant to Health Maintenance Care Teams Local Combination Truck Driver Relationship Specialty Start Date End Date Elsewhere, Pcp PCP - General Internal Medicine 01/16/24
--- OUTSIDE RECORDS SUMMARY | 2024-03-18 12:16 | XMS_ITS | Encounter Summary ---
Author Organization [facility] Address [address] [place] [address] Care Team Providers Care Gi Tech Name Role Phone Elsewhere, Pcp Primary Care Provider Unavailabl e Reason for Visit * Reason Onset Date Comments Budesonide Update 02/13/2024 Encounter Details Date Type Department Care Team (Latest Contact Info) Description 02/13/2024 Clinical Communication Department of Otorhinolaryngology in [place], [place] [address] [place] [address] Christy Barton M.D. [address] [place] [address] Budesonide Update Social History Tobacco Use Types Packs/Day Years Used Date Smoking Tobacco: Former Cigarettes Smokeless Tobacco: Never Comments:Smoked 10+ years, q uit tobacco smoke 2021, then switched to vape, uses 60mg per tank, 1 tank per week [facility] Utilities Answer Date Recorded In the past 12 months has [facility] [employer], gas, oil, or water [email or web address] threatened to shut off services in your [...] your living situation today? I have a [facility] place to live 01/16/2024 Sex and Gender Information Value Date Recorded Sex Assigned at Female 01/16/2024 1:03 PM CDT Gender Identity Female 01/16/2024 1:03 PM CDT Sexual Orientation Straight 01/16/2024 1: 03 PM CDT documented as of this encounter Miscellaneous Notes * Telephone Encounter - Christy Barton M.D. - 02/14/2024 12:18 PM CDT Ms. Cobb sent us an update that she has only had a partial response to BID budesonide irrigations after using them for 4 weeks. She would like to proceed with surgery as scheduled. Please include this in the submission to prior authorization. * Telephone Encounter - Clarice Palacios RPeri - 02/14/2024 8:49 AM CDT PLAN The following information was provided: Called patient to follow up on the budesonide. She is rinsing twice daily with the budesonide and feels like she gets relief for around 2 hours before she feels full again. Discussed that she should continue to use it until surgery. Discussed that in regards to the water in ear sensation, she could try squeezing the rinse bottle very gently as to avoid pushing water into the eustachian tube. Patient agreeable to plan. Information/Education: patient/caller able to teach back The following references were used: nursing clinical judgement documented in this encounter Plan of Treatment Upcoming Encounters Date Type Department Care Team (Late st Contact Info) Description 05/10/2024 3:00 PM CDT Office Visit Department of Otorhinolaryngology in [place], [place] [address] [place] [address] Christy Barton M.D. [address] [place] [address] documented as of this encounter Visit Diagnoses Not on filedocumented in this encounter Care Teams Gi Tech Relationship Specialty Start Date End Date Elsewhere, Pcp PCP - General Internal Medicine 01/16/24 documented as of this encounter
--- OUTSIDE RECORDS SUMMARY | 2024-03-18 12:16 | XMS_ITS | Encounter Summary ---
Author Organization [facility] Address [address] [place] [address] Care Team Providers Care Fried Cake Maker Name Role Phone Elsewhere, Pcp Primary Care Provider Unavailabl e Reason for Referral * Medication Prior Authorization - Closed Specialty Diagnoses / Procedures Referred By Yordy whiteside Referred To Contact Manuel Harris M.D. [address] [place] [address] Referral ID Status Reason Start Date Expiration Date Visits Re quested Visits Authorized [id number] Closed 1 1 Reason for Visit * Auth/Cert (Routine) Specialty Diagnoses / Procedures Referred By Yordy whiteside Referred To Contact Diagnoses Rhinosinusitis Chronic Sinusitis Rhinosinusitis Chronic [J32.8] Sinusitis [J32.9] Procedures [place] NSL/SINS NDSC SPHN TISS RMVL WA ENDO NSL MAX ANTROST W RMV TIS WA ENDO NSL W FRNTL SINUS EXPLOR WA STRTCTC COMP-ASSIST CRNL EXTRA ENDOSCOPIC MAXILLARY ANTROSTOMY WITH TISSUE REMOVAL ETHMOIDECTOMY ENDOSCOPY ENDOSCOPIC SPHENOIDOTOMY WITH TISSUE REMOVAL EXTRADURAL COMPUTER NAVIGATION SINUSOTOMY ENDOSCOPY FRONTAL Christy Barton M.D. [address] [place] [address] Referral ID Status Reason Start Date Expiration Date Visits Re quested Visits Authorized [id number] 1 1 Encounter Details Date Type Department Care Team (Latest Contact Info) Description 03/01/2024 7:05 AM CDT - 03/01/2024 5:00 PM CDT Hospital Encounter [facility] MAIN OR [address] [place] [address] Christy Barton M.D. [address] [place] [address] Rhinosinusitis Chronic; Sinusitis Discharge Disposition: Home or Self Care Social History Tobacco Use Types Packs/Day Years Used Date Smoking Tobacco: Former Cigarettes Smokeless Tobacco: Never Comments:Smoked 10+ years, q uit tobacco smoke 2021, then switched to vape, uses 60mg per tank, 1 tank per week Alcohol Use Standard Drinks/Week Comments Never 0 (1 standard drink = 0.6 oz pur e alcohol) [facility] Utilities Answer Date Recorded In the past 12 months has th e [employer], gas, oil, or water [employer] threatened to shut off services in your [...] living situation today? [facility] 01/16/2024 Sex and Gender Information Value Date Recorded Sex Assigned at Female 01/16/2024 1:03 PM CDT Gender Identity Female 01/16/2024 1:03 PM CDT Sexual Orientation Straight 01/16/2024 1: 03 PM CDT documented as of this encounter Last Filed Vital Signs Vital Sign Reading [...] Mass Index 25.62 03/01/2024 7:55 AM CDT documented in this encounter Medications at Time of Discharge Medication Sig Dispensed Refills Start Date End Date budesonide (Pulmicort) 0.5 mg/2 mL nebulizer solution Mix 1 ampule in sinus irrigation bottle and irrigate twice daily. 360 mL 3 01/17/2024 oxyCODONE (Roxicodone) 5 mg immediate release tabletIndications:Acut e Pain Exception Take 1 tablet (5 mg total) by mouth every 4 (four) hours as needed for moderate pain or score 4-6 of 10 Indication: Acute Pain Exception. 8 tablet 03/01/2024 tiZANidine (Zanaflex) 4 mg tablet Take 4 mg by mouth every 8 (eight) hours as needed. needed 11/16/2023 triamcinolone (Kenalog) 0.1 % ointment Apply 1 Application topically 3 (three) times a day as needed for irritation or rash. 10/10/2023 amoxicillin-pot clavulanate (Augmentin) 875-125 mg per tablet Take 1 tablet by mouth 2 (two) times a day for 10 days. 20 tablet 03/01/2024 03/11/2024 documented as of this encounter OR Notes * Op Note - Manuel Harris M.D. - 03/01/2024 1:03 PM CDT Pre-op Diagnosis Rhinosinusitis Chronic Sinusitis Post-op Diagnosis Rhinosinusitis Chronic Sinusitis Core Blower Operator A airline pilot/first officer actively participated and was necessary for one or more of the following: opening, exposure and visualization, maintaining hemostasis, wound closure resulting in its safe and expeditious completion. Findings 1.) Right middle turbinate scarred to lateral nasal wall. Resected without issue. 2.) Right maxillary antrostomy, ethmoidectomy and sphenoidotomy completed without issue. 3.) Right frontal outflow tract extremely narrowed. Unable to open frontal sinus widely on the right 4.) Left maxillary antrostomy, ethmoidectomy and sphenoidotomy completed without issue 5.) Left frontal sinusotomy completed with Draf 2b. Connected to contralateral frontal sinus to allow drainage from the right. 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 The surgical team verified the patient and the procedure to be performed. General anesthesiawas induced and the patient's airway was secured with an ET tube. A surgical pause was called. The nasal cavities were sprayed with 0.5% Afrin. The right and left nasal cavities were then injected with lidocaine 1% with 1:100,000 epinephrine. 4% cocaine pledgets were then placed into the nasal cavity. Next, CT image guidance was registered using skin surface matching. Electromagnetic trackers were attached to various surgical instruments. Once the image guidance was calibrated within 1-2 mm of k nown landmarks, the pledgets were removed and the nasal cavities were examined with a 0 degree endoscope. The right inferior turbinate was outfractured laterally with a Boies elevator. Using a [place]aca elevator on the right, the middle turbinate was medialized, though appeared to be scarred to the lateral nasal wall. A decision was made to remove the right middle turbinate. Using turbinate scissors, a cutwas made near the axilla. Inferior pressure was applied to the turbinate to provide separation fromthe skull base. The entire turbinate was resected and suction cautery was used to cauterize the stump near its attachement to the lateral nasal wall. The double ball probe was used to perform a revision uncinectomy with a retrograde approach. The probe was then used to cannulate the maxillary os. Awide antrostomy was made into the maxillary sinus and the edges were cleaned up with the microdebrider. The natural ostium was included in the antrostomy; this was confirmed with a 30 degree endoscope. Using a curette and microdebrider, the right anterior ethmoids were taken down, followed by the basal lamella. The superior turbinate was identified and used to locate the sphenoid face. Once this had been accomplished, the 45 degree curette was used to open the posterior ethmoids. The skull base and lamina were visualized, and remained intact. The microdebrider was used to remove redundant tissue within the anterior and posterior ethmoid cavities. The location of the skull base and lamina papyracea was periodically confirmed with the surgical navigation. The anterior ethmoids were then opened using the 45 degree curette. Redundant tissue was removed up to the level of the frontal recess. Posteriorly on the right, the superior turbinate was identified. The inferior third was excised using the microdebrider and the sphenoid sinus ostium was identified. This was cannulated using the straight suction and the opening was enlarged circumferentially. The antrostomy was then widened using the mushroom punch. Attention was then turned to the frontal recess. The anterior agger nasi was removed using the microdebrider and the posterior wall with a curette. The image guidance probe was used to cannulate the frontal sinus. This was extremely narrowed and unable to be opened widely due to the patient's frontal sinus anatomy. Attention was turned to the left nasal cavity. The left inferior turbinate was outfractured laterally with a Boies elevator. Using a Lavaca elevator on the left, the middle turbinate was medialized. The double ball probe was used to perform an uncinectomy with a retrograde approach. The probe was then used to cannulate the maxillary os. A wide antrostomy was made into the maxillary sinus and the edges were cleaned up with the microdebrider. The natural ostium was included in the antrostomy; this was confirmed with a 30 degree endoscope. Using a curette and microdebrider, the left anterior ethmoids were taken down, followed by the basal lamella. The superior turbinate was identified and used to locate the sphenoid face. Once this hadbeen accomplished, the 45 degree curette was used to open the posterior ethmoids. The skull base and lamina were visualized, and remained intact. The microdebrider was used to remove redundant tissuewithin the anterior and posterior ethmoid cavities. The location of the skull base and lamina papyracea was periodically confirmed with the surgical navigation. The anterior ethmoids were then openedusing the 45 degree curette. Redundant tissue was removed up to the level of the frontal recess. Posteriorly on the left, the superior turbinate was identified. The inferior third was excised using the microdebrider and the sphenoid sinus ostium was identified. This was cannulated using the straight suction and the opening was enlarged circumferentially. The antrostomy was then widened using the mushroom punch. Attention was then turned to the frontal recess. The anterior agger nasi was removed using the microdebrider and the posterior wall with a curette. The head of the middle turbinate was resected. The image guidance probe was used to cannulate the frontal sinus and dilate it anteriorly. An additionaltrack was identified connecting the the right frontal sinus, and this was also widened to allow fordrainage. The outflow track was widened using a frontal mushroom punch. At this point, there was minimal inflammatory disease remaining. The nasopharynx was then suctionedand the nose was copiously irrigated with saline. No active arterial bleeding was identified. PosiSep X was placed in the bilateral middle meatus. This completed the surgical procedure. An OG tube was passed to suction out gastric contents. The patient was turned over to the anesthesia team for awakening and extubation and was transferred to the PACU in stable condition. Manuel Harris M.D. documented in this encounter Miscellaneous Notes * Result Encounter Note - Christy Barton M.D. - 03/06/2024 12:00 PM CDT I have reviewed the final pathology report and the identified diagnosis is consistent with the patient's clinical presentation. documented in this encounter Plan of Treatment Upcoming Encounters Date Type Department Care Team (Late st Contact Info) Description 05/10/2024 3:00 PM CDT Office Visit Department of Otorhinolaryngology in [place], [place] [address] [place] [address] Christy Barton M.D. [address] [place] [address] documented as of this encounter Procedures Procedure Name Priority Date/Time Associated Diagnosis Comments SURGICAL PATHOLOGY, FROZEN LAB Routine 03/01/2024 1:31 PM CDT Rhinosinusitis Chronic Sinusitis SINUSOTOMY ENDOSCOPY FRONTAL 03/01/2024 11:47 AM CDT Rhinosinusitis Chronic Sinusitis Case Notes Fiber Glass Worker 708 EXTRADURAL COMPUTER NAVIGATION 03/01/2024 11:47 AM CDT Rhinosinusitis Chronic Sinusitis Case Notes Fiber Glass Worker 708 ENDOSCOPIC SPHENOIDOTOMY WITH TISSUE REMOVAL 03/01/2024 11:47 AM CDT Rhinosinusitis Chronic Sinusitis Case Notes Fiber Glass Worker 708 ETHMOIDECTOMY ENDOSCOPY 03/01/2024 11:47 AM CDT Rhinosinusitis Chronic Sinusitis Case Notes Fiber Glass Worker 708 ENDOSCOPIC MAXILLARY ANTROSTOMY WITH TISSUE REMOVAL 03/01/2024 11:47 AM CDT Rhinosinusitis Chronic Sinusitis Case Notes Fiber Glass Worker 708 documented in this encounter Results * Surgical Pathology, Frozen Lab (03/01/2024 1:31 [...] ??All submitted for permanent sections. ??Grossed by Ishmael Wooten, P.A. ([facility]). B. ??Received fresh in a collection sock labeled right sinonasal contents is a 3.8 x 2 x 1 cm aggregate of campbell-pink soft tissue, cartilage, and bony fragments admixed with blood. ??All submitted for permanent sections. ??Grossed by Ishmael Wooten, P.A. ([facility]). 03/06/2024 9:25 AM CDT STMA Block Summary [...] Tissue (Nose) 03/01/2024 2:0 0 PM CDT hCristy Barton M.D. LAB SURG PATH ORD ERABLES [facility] [address] [place] [address], [place] STMA [address] [facility] [address] [place] [address] documented in this encounter Visit Diagnoses Diagnosis Rhinosinusitis Chronic Sinusitis documented in this encounter Admitting Diagnoses Diagnosis Rhinosinusitis Chronic Sinusitis documented in this encounter Administered Medications Inactive Administered Medications - up to 3 most recent administrations Medication Order MAR Action Action Date Dose Rate Site acetaminophen tablet 1,000 mg (TylenoL) 1,000 mg, oral, Once, On Mon03/01/24 at 1215, For 1 dose, Pre-Op Given 03/01/2024 12:02 PM CDT 1,000 mg fentaNYL injection 25 mcg (Sublimaze) 25 mcg, intravenous, Every 2 min PRN, moderate pain or score 4-6 of 10, severe pain or score 7-10 of 10, Starting on Mon03/01/24 at 1111, PACU (only), Up to maximum total dose of 100 mcg Given 03/01/2024 4:18 PM CDT 25 mcg sodium chloride 0.9 % injection 10 mL 10 mL, intravenous, As needed, line care, Starting on Mon03/01/24 at 1109, Pre-Op, Peripheral Intravenous Catheter and Rapid Infusion Catheter, prior to blood sampling, post blood transfusion or post blood sampling sodium chloride 0.9 % injection 3 mL 3 mL, intravenous, As needed, line care, Starting on Mon03/01/24 at 1109, Pre-Op, Prior to and following infusion and between multiple consecutive infusions: sodium chloride 0.9 % injection sodium chloride 0.9 % injection 3 mL 3 mL, intravenous, Every 12 hours scheduled, First dose on Mon03/01/24 at 2100, Pre-Op, Peripheral Intravenous Catheter and Rapid Infusion Catheter, when no infusion to maintain patency documented in this encounter Active and Recently Administered Medications Times are shown in CDT. Scheduled Medication Order 02/28/2024 02/29/2024 03/01/2024 acetaminophen tablet 1,000 mg (TylenoL) (COMPLETED) 1,000 mg, oral, Once, On Mon03/01/24 at 1215, For 1 dose, Pre-Op 1202 (Given - Provid er: Nery Hernandez R.N.) sodium chloride 0.9 % injection 3 mL 3 mL, intravenous, Every 12 hours scheduled, First dose on Mon03/01/24 at 2100, Pre-Op, Peripheral Intravenous Catheter and Rapid Infusion Catheter, when no infusion to maintain patency Continuous Medication Order 02/28/2024 02/29/2024 03/01/2024 Lactated Ringer's 20 mL/hr, intravenous, Continuous, Starting on Mon03/01/24 at 1315, PACU & Post-Op 1315 (Due) PRN Medication Order 02/28/2024 02/29/2024 03/01/2024 cocaine 4 % nasal solution (CANCELED) As needed, Starting on Mon03/01/24 at 1254, Intra-Op 1254 (Given - Provid er: Manuel Harris M.D. - Comment: soaked on cottonoids) fentaNYL injection 25 mcg (Sublimaze) 25 mcg, intravenous, Every 2 min PRN, moderate pain or score 4-6 of 10, severe pain or score 7-10 of 10, Starting on Mon03/01/24 at 1111, PACU (only), Up to maximum total dose of 100 mcg 1618 (Given - Provid er: Roger Resendiz R.N.) lidocaine-EPINEPHrine 1 %-1:100,000 injection (Xylocaine w/epi) (CANCELED) As needed, Starting on Mon03/01/24 at 1300, Intra-Op 1300 (Given - Provid er: Manuel Harris M.D.) oxyCODONE IR tablet 5 mg (Roxicodone) 5 mg, oral, Once as needed, moderate pain or score 4-6 of 10, severe pain or score 7-10 of 10, Starting on Mon03/01/24 at 1629, For 1 dose, PACU (only) oxymetazoline 0.05 % nasal spray (Afrin) (CANCELED) As needed, Starting on Mon03/01/24 at 1250, Intra-Op 1250 (Given - Provid er: Manuel Harris M.D.)1347 (Given - Provider: Manuel Harris M.D. - Comment: soaked on cottonoids, used throughout the case) sodium chloride 0.9 % injection 10 mL 10 mL, intravenous, As needed, line care, Starting on Mon03/01/24 at 1109, Pre-Op, Peripheral Intravenous Catheter and Rapid Infusion Catheter, prior to blood sampling, post blood transfusion or post blood sampling sodium chloride 0.9 % injection 3 mL 3 mL, intravenous, As needed, line care, Starting on Mon03/01/24 at 1109, Pre-Op, Prior to and following infusion and between multiple consecutive infusions: sodium chloride 0.9 % injection triamcinolone acetonide injection (Kenalog-40) (CANCELED) As needed, Starting on Mon03/01/24 at 1532, Intra-Op 1532 (Given - Provid er: Manuel Harris M.D. - Comment: on vectra F) documented in this encounter Care Teams Fried Cake Maker Relationship Specialty Start Date End Date Elsewhere, Pcp PCP - General Internal Medicine 01/16/24 documented as of this encounter
--- OUTSIDE RECORDS SUMMARY | 2024-03-18 12:16 | XMS_ITS | Encounter Summary ---
Author Organization [facility] Address [address] [place] [address] Care Team Providers Care Director Name Role Phone Elsewhere, Pcp Primary Care Provider Unavailabl e Reason for Visit * Auth/Cert (Routine) Specialty Diagnoses / Procedures Referred By Yordy whiteside Referred To Contact Diagnoses Rhinosinusitis Chronic Sinusitis Rhinosinusitis Chronic [J32.8] Sinusitis [J32.9] Procedures [place] NSL/SINS NDSC SPHN TISS RMVL IL ENDO NSL MAX ANTROST W RMV TIS IL ENDO NSL W FRNTL SINUS EXPLOR IL STRTCTC COMP-ASSIST CRNL EXTRA ENDOSCOPIC MAXILLARY ANTROSTOMY WITH TISSUE REMOVAL ETHMOIDECTOMY ENDOSCOPY ENDOSCOPIC SPHENOIDOTOMY WITH TISSUE REMOVAL EXTRADURAL COMPUTER NAVIGATION SINUSOTOMY ENDOSCOPY FRONTAL Christy Barton M.D. [address] [place] [address] Referral ID Status Reason Start Date Expiration Date Visits Re quested Visits Authorized [id number] 1 1 Encounter Details Date Type Department Care Team ([facility] st Contact Info) Description 03/01/2024 9:07 AM CDT - 03/01/2024 1:02 PM CDT Surgery [facility] MAIN OR [address] [place] [phone] Christy Barton M.D. [address] [place] [phone] ENDOSCOPIC MAXILLARY ANTROSTOMY, TISSUE REMOVAL. Social History Tobacco Use Types Packs/Day Years Used Date Smoking Tobacco: Former Cigarettes Smokeless Tobacco: Never Comments:Smoked 10+ years, q uit tobacco smoke 2021, then switched to vape, uses 60mg per tank, 1 tank per week Alcohol Use Standard Drinks/Week Comments Never 0 (1 standard drink = 0.6 oz pur e alcohol) [facility] Utilities Answer Date Recorded In the [...] your living situation today? I have a [facility] place to live 01/16/2024 Sex and Gender Information Value Date Recorded Sex Assigned at Female 01/16/2024 1:03 PM CDT Gender Identity Female 01/16/2024 1:03 PM CDT Sexual Orientation Straight 01/16/2024 1: 03 PM CDT documented as of this encounter Last Filed Vital Signs Vital Sign Reading Time Taken Comments Blood Pressure 108/74 03/01/2024 7:55 AM CDT Pulse 89 03/01/2024 7:55 AM CDT Temperature 36.7 ??C (98.1 ??F) 03/01/2024 7:55 AM CD T Respiratory Rate 18 03/01/2024 7:55 AM CDT Oxygen Saturation 98% 03/01/2024 7:55 AM CDT Inhaled Oxygen Concentration - - Weight [...] Chronic Sinusitis Post-op Diagnosis Rhinosinusitis Chronic Sinusitis Customer Service Receptionist A water quality assistant actively participated and was necessary for one [...] laterally with a Boies elevator. Using a [place] elevator on the right, the middle turbinate [...] laterally with a Boies elevator. Using a [place] elevator on the left, the middle turbinate [...] CDT Office Visit Department of Otorhinolaryngology in [place], [place] [address] [place] [address] Christy Barton M.D. [address] [place] [address] documented as of this encounter Procedures Procedure Name Priority Date/Time Associated Diagnosis Comments SURGICAL PATHOLOGY, FROZEN LAB Routine 03/01/2024 1:31 PM CDT Rhinosinusitis Chronic Sinusitis SINUSOTOMY ENDOSCOPY FRONTAL 03/01/2024 11:47 AM CDT Rhinosinusitis Chronic Sinusitis Case Notes Ob Tech 708 EXTRADURAL COMPUTER NAVIGATION 03/01/2024 11:47 AM CDT Rhinosinusitis Chronic Sinusitis Case Notes Ob Tech 708 ENDOSCOPIC SPHENOIDOTOMY WITH TISSUE REMOVAL 03/01/2024 11:47 AM CDT Rhinosinusitis Chronic Sinusitis Case Notes Ob Tech 708 ETHMOIDECTOMY ENDOSCOPY 03/01/2024 11:47 AM CDT Rhinosinusitis Chronic Sinusitis Case Notes Ob Tech 708 ENDOSCOPIC MAXILLARY ANTROSTOMY WITH TISSUE REMOVAL 03/01/2024 11:47 AM CDT Rhinosinusitis Chronic Sinusitis Case Notes Ob Tech 708 documented in this encounter Results * Surgical Pathology, Frozen Lab (03/01/2024 1:31 PM CDT) 03/06/2024 9:25 AM CDT STMA Participated in the Interpretation Jono Botello, Ph.D.-Pathology Resident 03/06/2024 9:25 AM CDT STMA [...] ??All submitted for permanent sections. ??Grossed by Danielle Wooten., P.A. ([facility]). B. ??Received fresh in a collection sock labeled right sinonasal contents is a 3.8 x 2 x 1 cm aggregate of campbell-pink soft tissue, cartilage, and bony fragments admixed with blood. ??All submitted for permanent sections. ??Grossed by Danielle Wooten., P.A. ([facility]). 03/06/2024 9:25 AM CDT STMA Block Summary [...] Barton M.D. LAB SURG PATH ORD ERABLES [facility] [address] [place] [address], [place] [facility] [address] [place] [address] documented in this encounter Visit Diagnoses Diagnosis Rhinosinusitis Chronic Sinusitis Rhinosinusitis Chronic Sinusitis documented in this encounter Admitting Diagnoses Diagnosis Rhinosinusitis Chronic Sinusitis documented in this encounter Administered Medications Inactive Administered Medications - up to 3 most recent administrations Medication Order MAR Action Action Date Dose Rate Site acetaminophen tablet 1,000 mg (TylenoL) 1,000 mg, oral, Once, On Mon03/01/24 at 1215, For 1 dose, Pre-Op Given 03/01/2024 12:02 PM CDT 1,000 mg cocaine 4 % nasal solution As needed, Starting on Mon03/01/24 at 1254, Intra-Op Given 03/01/2024 12:54 PM CDT 1 Application Bilateral Nares fentaNYL injection 25 mcg (Sublimaze) 25 mcg, intravenous, Every 2 min PRN, moderate pain or score 4-6 of 10, severe pain or score 7-10 of 10, Starting on Mon03/01/24 at 1111, PACU (only), Up to maximum total dose of 100 mcg Given 03/01/2024 4:18 PM CDT 25 mcg lidocaine-EPINEPHrine 1 %-1:100,000 injection (Xylocaine w/epi) As needed, Starting on Mon03/01/24 at 1300, Intra-Op Given 03/01/2024 1:00 PM CDT 6 mL Bilateral Nares oxymetazoline 0.05 % nasal spray (Afrin) As needed, Starting on Mon03/01/24 at 1250, Intra-Op Given 03/01/2024 1:47 PM CDT 1 Application Bilateral Nares Given 03/01/2024 12:50 PM CDT 2 sprays B ilateral Nares sodium chloride 0.9 % injection 10 mL [...] Catheter, when no infusion to maintain patency triamcinolone acetonide injection (Kenalog-40) As needed, Starting on Mon03/01/24 at 1532, Intra-Op Given 03/01/2024 3:32 PM CDT 1 mL Lef t Nare documented in this encounter Active and Recently Administered Medications Times are shown in CDT. Scheduled Medication Order 02/28/2024 02/29/202403/01/2024 acetaminophen tablet 1,000 mg (TylenoL) (COMPLETED) 1,000 mg, oral, Once, On Mon03/01/24 at 1215, For 1 dose, Pre-Op 1202 (Given - Provid er: Nery Hernandez, R.N.) sodium chloride 0.9 % injection 3 [...] mcg 1618 (Given - Provid er: Roger Resendiz, R.N.) lidocaine-EPINEPHrine 1 %-1:100,000 injection (Xylocaine w/epi) [...] F) documented in this encounter Care Teams Director Relationship Specialty Start Date End Date Elsewhere, Pcp PCP - General Internal Medicine 01/16/24 documented as of this encounter
--- OUTSIDE RECORDS SUMMARY | 2024-03-18 12:16 | XMS_ITS | Encounter Summary ---
Author Organization [facility] Address [address] [place] [address] Care Team Providers Care Dietetic Aide Name Role Phone Elsewhere, Pcp Primary Care Provider Unavailabl e Reason for Referral * Outpatient (Routine) - Authorized Specialty Diagnoses / Procedures Referred By Yordy t Referred To Contact Otorhinolaryngology Roger Anaya APRN, C.N.P., M.S.NHelen [address] [place] [phone] Christy Barton M.D. [address] [place] [phone] Referral ID Status Reason Start Date Expiration Date V isits Requested Visits Authorized [id number] Authorized 03/15/2024 09/14/2025 [address] Barton 6-8 weeks Reason for Visit * Outpatient (Routine) - Closed Specialty Diagnoses / Procedures Referred By Contac t Referred To Contact Otorhinolaryngology Christy Barton M.D. [address] [place] [phone] [facility] Referral ID Status Reason Start Date Expiration Date Visits Re quested Visits Authorized [id number] Closed 01/17/2024 07/18/2025 1 1 Encounter Details Date Type Department Care Team (Latest Contact Info) Description 03/15/2024 11:15 AM CDT Office Visit Department of Otorhinolaryngology in [place], [place] [address] [place] [address] Roger Anaya APRN, C.N.P., M.S.N. [address] [place] [phone] Rhinosinusitis Chronic (Primary Dx); Polyp Nasal Social History Tobacco Use Types Packs/Day Years Used Date Smoking Tobacco: Former Cigarettes Smokeless Tobacco: Never Comments:Smoked 10+ years, q uit tobacco smoke 2021, then switched to vape, uses 60mg per tank, 1 tank per week Alcohol Use Standard Drinks/Week Comments Never 0 (1 standard drink = 0.6 oz pur e alcohol) [facility] Utilities Answer Date Recorded In the past 12 months has th e [employer], gas, oil, or water [employer] threatened to shut off services in your [...] your living situation today? I have a [facility] place to live 01/16/2024 Sex and Gender Information Value Date Recorded Sex Assigned at Female 01/16/2024 1:03 PM CDT Gender Identity Female 01/16/2024 1:03 PM CDT Sexual Orientation Straight 01/16/2024 1: 03 PM CDT documented as of this encounter Progress Notes * Roger Anaya APRN, C.N.P., M.S.N. - 03/15/2024 11:15 AM CDT SUBJECTIVE CHIEF COMPLAINT / REASON FOR VISIT Shoshana Cobb is a 34 y.o. female who presents for postop evaluation HISTORY OF PRESENT ILLNESS Rhinosinusitis: Chronic without nasal polyposis. Previous Sinus Surgery: Yes October [address] Nuno Allergic Rhinitis:Yes skin testing in September 2022 revealed allergy to mold. Asthma: No. Aspirin Sensitivity:No. Ms. Cobb is a 34 y.o. female who was seen today for her first follow-up appointment after endoscopic sinus surgery to include bilateral maxillary antrostomies, ethmoidectomies, sphenoidotomies and frontal sinusotomies (Draf IIb)on 03/01/2024. 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 Overall, she is recovering well and has been irrigating twice daily. She endorses bilateral nasal congestion. She was overall doing well and her sense of smell is intact. There has been no significant bleeding, headache, or clear drainage. Findings 1.) Right middle turbinate scarred to [...] and osteitic bone present throughout bilateral sinuses OBJECTIVE PHYSICAL EXAM Constitutional: Appears alert and well Otoscopic: Hearing is grossly normal Right: External ear normal Left: External ear normal Nose: The external nose is without significant lesions or masses Cardiovascular: Upper extremities are well perfused Pulmonary/Chest: Respirations have grossly normal rate and effort Neurological: She is alert PROCEDURE NOTE: Procedure: Postop Debridement Indication: CRS, postop, Informed Consent obtained: The risks, benefits, alternatives, and expectations were discussed with patient verbally and the patient wishes to proceed. Findings: After anesthesia and decongestion with topical lidocaine and afrin spray, the nasal cavities were examined and debrided with a 30 degree endoscope. Large crusts were taken down from the anterior nasal chambers with a suction and Blakesley forceps. The middle turbinates were in good position. Crusts and dissolvable packing materials were removed from the middle meatus, maxillary sinus, sphenoid sinus, frontal recess, and ethmoid cavities bilaterally. The left maxillary sinus was filledwith polypoid edema. Attempted to decompress however patient did not tolerate this well. The left draft 2B was patent with view of the right frontal sinus No mucus, pus or polyps were noted. There isno CSF leak. Things are healing well. The patient tolerated the procedure well and there were no complications. Right Side Left Side Polyp Absent = 0 Absent = 0 Edema Mild/moderate = 1 Mild/moderate = 1 Discharge Thin and clear = 1 Thin and clear = 1 Scarring Absent = 0 Absent = 0 Crusting Absent = 0 Absent = 0 Sil-Jonatan Endoscopy Score = 4 ASSESSMENT / PLAN #1 Rhinosinusitis Chronic #2 Polyp Nasal It was a pleasure to see Ms. Cobb for her first postoperative follow up after surgery. She hasrecovered well and is using her rinses twice daily with budesonide. She tolerated postoperative debridement well and endorses having improvement in her congestion. She was been smelling well through her nose as well as breathing. Her bilateral maxillary, ethmoid, sphenoid, and frontal sinuses were patent. The right frontal sinus was quite narrowed therefore the draft 2B on the left side was patent with view of the contralateral side. The left maxillary sinus was noted to be quite edematous with polypoid edema. No signs of any infection. We discussed continuing to rinse with twice daily budesonide irrigations and we will plan for follow-up in 6-8 weeks. All of her questions were answered and she was agreeable to plan. She will reach out in the interim with any further questions or concerns. Roger Anaya APRN, C.N.P., M.S.N. documented in this encounter Plan of Treatment Upcoming Encounters Date Type Department Care Team (Late st Contact Info) Description 05/10/2024 3:00 PM CDT Office Visit Department of Otorhinolaryngology in [place], [place] [address] [place] [phone] Christy Barton M.D. [address] [place] [phone] Scheduled Referrals Name Type Priority Associated Diagnoses Order Schedule Otorhinolaryngology Post Op (clinic) Outpatient Referral Routine Expected: 04/26/2024, Expires: 06/15/2025 documented as of this encounter Visit Diagnoses Diagnosis Rhinosinusitis Chronic- Primary Polyp Nasal documented in this encounter Care Teams Dietetic Aide Relationship Specialty Start Date End Date Elsewhere, Pcp PCP - General Internal Medicine 01/16/24 documented as of this encounter
--- OUTSIDE RECORDS SUMMARY | 2024-03-18 12:16 | XMS_ITS | Encounter Summary ---
Author Organization [facility] Address [address] [place] [address] Care Team Providers Care Trench Digger Name Role Phone Elsewhere, Pcp Primary Care Provider Unavailabl e Encounter Details Date Type Department Care Team (Latest Contact Info) Description 03/15/2024 11:25 AM CDT Ancillary Procedure Department of Otorhinolaryngology Arrived Social History Tobacco Use Types Packs/Day Years Used Date Smoking Tobacco: Former Cigarettes Smokeless Tobacco: Never Comments:Smoked 10+ years, q uit tobacco smoke 2021, then switched to vape, uses 60mg per tank, 1 tank per week Alcohol Use Standard Drinks/Week Comments Never 0 (1 standard drink = 0.6 oz pur e alcohol) [facility] Utilities Answer Date Recorded In the past 12 months has e electric, gas, oil, or water company [...] your living situation today? I have a [facility] place to live 01/16/2024 Sex and [...] CDT Office Visit Department of Otorhinolaryngology in [place], [place] [address] [place] [address] Christy Barton M.D. [address] [place] [phone] documented as of this encounter Procedures Procedure Name Priority Date/Time Associated Diagnosis Comments OTORHINOLARYNGOLOGY IMAGE EXAM Routine 03/15/2024 11:25 AM CDT documented in this encounter Results * Nasal Endoscopy-Otorhinolaryngology Image Exam (03/15/2024 11:25 AM CDT) 03/15/2024 11:2 5 AM CDT Narrative IIMS - 03/15/2024 12:05 PM CDT This order has been created and auto-finalized to support the import of images acquired without order. The clinical documentation to support these images can be found on the encounter that produced images. Provider Not In System IMG NON RAD IMAGI NG PROCEDURES IICO NA documented in this encounter Visit Diagnoses Not on filedocumented in this encounter Care Teams Trench Digger Relationship Specialty Start Date End Date Elsewhere, Pcp PCP - General Internal Medicine 01/16/24 documented as of this encounter
--- OUTSIDE RECORDS SUMMARY | 2024-03-18 12:16 | XMS_ITS | Encounter Summary ---
Author Organization [facility] Address [address] [place] [address] Care Team Providers Care Production Assembly Supervisor Name Role Phone Elsewhere, Pcp Primary Care Provider Unavailabl e Reason for Visit * Outpatient (Routine) - Closed Specialty Diagnoses / Procedures Referred By Yordy whiteside Referred To Contact Otorhinolaryngology Christy Barton M.D. [address] [place] [phone] Christy Barton M.D. [address] [place] [phone] Referral ID Status Reason Start Date Expiration Date Visits Re quested Visits Authorized [id number] Closed 01/17/2024 07/18/2025 1 1 Encounter Details Date Type Department Care Team (Latest Contact Info) Description 02/28/2024 3:00 PM CDT Telemedicine Department of Otorhinolaryngology in [place], [place] [address] [place] [phone] Roger Anaya APRN, C.N.P., M.S.N. [address] [place] [phone] Rhinosinusitis Chronic (Primary Dx) Social History Tobacco Use Types Packs/Day Years Used Date Smoking Tobacco: Former Cigarettes Smokeless Tobacco: Never Comments:Smoked 10+ years, q uit tobacco smoke 2021, then switched to vape, uses 60mg per tank, 1 tank per week [facility] Utilities Answer Date Recorded In the past 12 months has th e electric, gas, oil, or water [employer] threatened to shut off services in your [...] your living situation today? I have a [facility] place to live 01/16/2024 Sex and Gender Information Value Date Recorded Sex Assigned at Female 01/16/2024 1:03 PM CDT Gender Identity Female 01/16/2024 1:03 PM CDT Sexual Orientation Straight 01/16/2024 1: 03 PM CDT documented as of this encounter Consult Notes * Roger Anaya, KALEY, C.N.P., M.S.N. - 02/28/2024 3:00 PM CDT SUBJECTIVE CHIEF COMPLAINT / REASON FOR VISIT Shoshana Cobb is a 34 y.o. female who presents via video visit for preop evaluation HISTORY OF PRESENT ILLNESS Rhinosinusitis: Chronic without nasal polyposis. Previous Sinus Surgery: Yes October [address] Nuno Allergic Rhinitis:Yes skin testing in September 2022 revealed allergy to mold. Asthma: No. Aspirin Sensitivity:No. Shoshana Cobb presents for preop evaluation on video visit prior to endoscopic sinus surgery scheduled for tomorrow. Recall we previously met with the patient on 01/17/2024 where the patientreported ongoing face pain, postnasal drip that has been present for over a year with the most bothersome being postnasal drip. Her exam and recent imaging suggested recirculation syndrome and an incomplete the scopic sinus surgery. We initiated the patient on budesonide rinses twice a day for one-month with follow-up scheduled today and surgery scheduled tomorrow. Today, patient reports feeling bilateral ear plugging. She has been using the budesonide irrigations twice daily. Continues to have moderate face pain below her eyes, above her eyebrows and when sneezing can feel it more. Post nasal drip is still prominent. She does have contact dermatitis on her chest and was given a steroid cream that she has been using. The patient's worst symptoms are Nasal blockage, Sneezing, Facial pain/pressure, Decreased sense of smell/taste, Difficulty falling asleep, Wake up at night, Lack of a good night's sleep, Wake up tired and the total SNOT-22 score is 43. Social History Tobacco Use Smoking status: Former Types: Cigarettes Smokeless tobacco: Never Tobacco comments: Smoked 10+ years, quit tobacco smoke 2021, then switched to vape, uses 60mg per tank, 1 tank per week REVIEW OF SYSTEMS REVIEW OF SYSTEMS OBJECTIVE PHYSICAL EXAM Constitutional: Appears alert Otoscopic: Hearing is grossly normal Cardiovascular: Upper extremities are well perfused Neurological: She is alert Skin: Skin is normal temperature Psychiatric: Affect appears appropriate ASSESSMENT / PLAN #1 Rhinosinusitis Chronic It was a pleasure to speak with via video visit. She has been using budesonide irrigations twice daily but does endorse some bilateral ear fullness along with continued facial pain and postnasal drainage. She was scheduled to undergo endoscopic sinus surgery therefore she continues to be symptomatic. We recorded her SNOT-22 score today, and she has a recent CT sinus scan. Therefore, the risks, benefits, and alternatives of endoscopic sinus surgery to include bilateral Maxillary antrostomies, Total ethmoidectomy, Sphenoidotomy, and Frontal sinusotomy were discussed in detail. The goals of surgery would be to widen the sinus openings to facilitate medical therapies, reduce the current burden of disease, and improve the patient's symptoms. We discussed the postoperative recommendations, including a 7-14 day follow-up appointment. The patient understands that twice daily postoperative budesonide rinses will be the best way to reduce hersymptoms. Shoshana Cobb is in agreement with this, and we have scheduled her for tomorrow.All of her questions were answered and she is agreeable to plan. Roger Anaya APRN, C.NQuentin, M.S.N. documented in this encounter Plan of Treatment Upcoming Encounters Date Type Department Care Team (Late st Contact Info) Description 05/10/2024 3:00 PM CDT Office Visit Department of Otorhinolaryngology in [place], [place] [address] [place] [phone] Christy Barton M.D. [address] [place] [phone] documented as of this encounter Visit Diagnoses Diagnosis Rhinosinusitis Chronic- Primary documented in this encounter Care Teams Production Assembly Supervisor Relationship Specialty Start Date End Date Elsewhere, Pcp PCP - General Internal Medicine 01/16/24 documented as of this encounter
--- OUTSIDE RECORDS SUMMARY | 2024-03-18 12:16 | XMS_ITS | Encounter Summary ---
Author Organization [facility] Address [address] [place] [address] Care Team Providers Care Equities Analyst Name Role Phone Elsewhere, Pcp Primary Care Provider Unavailabl e Reason for Visit * Reason Onset Date Comments RX PA Not Needed 01/22/2024 Budesonide 0.5m g/2ml Encounter Details Date Type Department Care Team (Latest Contact Info) Description 01/22/2024 Clinical Communication Pharmacy Prior Concepcion SILVA [phone] Renaldo Sewell RX PA Not Needed (Budesonide 0.5mg/2ml) Social History Tobacco Use Types Packs/Day Years Used Date Smoking Tobacco: Former Cigarettes Smokeless Tobacco: Never Comments:Smoked 10+ years, q uit tobacco smoke 2021, then switched to vape, uses 60mg per tank, 1 tank per week [facility] Utilities Answer Date Recorded In the past 12 months has [facility] electric, gas, oil, or water company threatened [...] your living situation today? I have a [facility] place to live 01/16/2024 Sex and Gender Information Value Date Recorded Sex Assigned at Female 01/16/2024 1:03 PM CDT Gender Identity Female 01/16/2024 1:03 PM CDT Sexual Orientation Straight 01/16/2024 1: 03 PM CDT documented as of this encounter Miscellaneous Notes * Telephone Encounter - Renaldo Sewell - 01/22/2024 4:13 PM CDT Closed. PA Not Required documented in this encounter Plan of Treatment Upcoming Encounters Date Type Department Care Team (Late st Contact Info) Description 05/10/2024 3:00 PM CDT Office Visit Department of Otorhinolaryngology in [place], [place] [address] [place] [address] Christy Barton M.D. [address] [place] [phone] documented as of this encounter Visit Diagnoses Not on filedocumented in this encounter Care Teams Equities Analyst Relationship Specialty Start Date End Date Elsewhere, Pcp PCP - General Internal Medicine 01/16/24 documented as of this encounter
--- OUTSIDE RECORDS SUMMARY | 2024-03-18 12:16 | XMS_ITS | Clinical Summary ---
Author Organization [facility] Address [address] [place] [address] Care Team Providers Care Electromechanical Equipment Assembler Name Role Phone Elsewhere, Pcp Primary Care Provider Unavailabl e Source Comments Patient records contain information from all sites at [facility]. For routine questions regarding patient records, call [phone] during business hours, M-F 8:00 AM - 5:00 PM Central Time. Record requests for emergency care only can be directed to [phone] at any time.[facility] Allergies Active Allergy Reactions Criticality Noted Date [...] Diagnosed Date Rhinosinusitis Chronic 01/17/2024 Sinusitis 01/17/2024 Encounters Date Type Department Care Team Description 03/15/2024 11:25 AM CDT Ancillary Procedure Department of Otorhinolaryngology Arrived 03/15/2024 11:15 AM CDT Office Visit Department of Otorhinolaryngology in [place], [place] [address] [place] [phone] Roger Anaya APRN C.N.P., M.S.N. Rhinosinusitis Chronic (Primary Dx); Polyp Nasal 03/01/2024 12:07 PM CDT Anesthesia Event [facility] [address] [place] [phone] Alvaro Monae M.D. Steege, Jenna R, APRN, ALYSON, D.N.P. 03/01/2024 11:55 AM CDT Ancillary Procedure Department of General Surgery 03/01/2024 9:07 AM CDT - 03/01/2024 1:02 PM CDT Surgery [facility] [address] [place] [phone] Christy Barton M.D. ENDOSCOPIC MAXILLARY ANTROSTOMY, TISSUE REMOVAL. 03/01/2024 7:05 AM CDT - 03/01/2024 5:00 PM CDT Hospital Encounter [facility] [address] [place] [phone] Christy Barton M.D. Rhinosinusitis Chronic; Sinusitis Discharge Disposition: Home or Self Care 02/28/2024 3:00 PM CDT Telemedicine Department of Otorhinolaryngology in [place], [place] [address] [place] [phone] Roger Anaya APRN, Joseph.N.P., M.S.N. Rhinosinusitis Chronic (Primary Dx) 02/13/2024 Clinical Communication Department of Otorhinolaryngology in [place], [place] [address] [place] [phone] Christy Barton M.D. Budesonide Update 01/22/2024 Clinical Communication Pharmacy Prior Auth RO [phone] Renaldo Sewell RX PA Not Needed (Budesonide 0.5mg/2ml) 01/17/2024 9:15 AM CDT Ancillary Procedure Department of Otorhinolaryngology 01/17/2024 9:15 AM CDT Comprehensive Visit Department of Otorhinolaryngology in [address] [phone] Christy Barton M.D. Rhinosinusitis Chronic (Primary Dx); Polyp Nasal; Sinusitis 01/17/2024 Clinical Communication Department of Otorhinolaryngology in [address] [phone] Christy Barton M.D. 01/16/2024 12:45 PM CDT Clinical Communication Virtual Review in [address] [phone] Pre-visit Intake from Last 3 Months Immunizations Name Administration Dates Next Due Influenza, [...] drink = 0.6 oz pur e alcohol) [facility] Utilities Answer Date Recorded In the past 12 months has [employer], gas, oil, or water [employer] threatened to shut off services in your [...] your living situation today? I have a [facility] place to live 01/16/2024 Sex and Gender [...] CDT Office Visit Department of Otorhinolaryngology in [place], [place] [address] [place] [address] Christy Barton M.D. [address] [place] [phone] Health Maintenance Due Date Last Done Comments Cervical Cancer Screening 1988 Lipid (Cholesterol) Screening 1988 Tobacco Cessation counseling 1988 Hepatitis B Vaccines (2 of 3 - 3-dose series) 02/11/2003 01/14/2003 Depression Screening (Annual PHQ-2) 07/17/2023 COVID-19 Vaccine ( season) 2024 Influenza Vaccine (#1) 2024 9, 06/05/2019, 04/14/2016, Additional history exists DTaP,Tdap,and Td Vaccines (9 - Td or Tdap) 10/30/2029 10/31/2019, 07/25/2013, 07/20/2011, Additional history exists HIV Screening Completed 04/05/2013 HPV Vaccines Completed 10/07/2015, 11/2014, 07/21/2014, Additional history exists Pneumococcal vaccine (0-64 years) Aged Out No longer eligible based on patient's age to complete this topic Procedures Procedure Name Priority Date/Time Associated Diagnosis Comments OTORHINOLARYNGOLOGY IMAGE EXAM Routine 03/15/2024 11:25 AM CDT SURGICAL PATHOLOGY, [facility] Routine 03/01/2024 1:31 PM CDT Rhinosinusitis Chronic Sinusitis LDA ANE ENDOTRACHEAL AIRWAY Routine 03/01/2024 12:33 PM CDT SURGERY IMAGE EXAM Routine 03/01/2024 11:55 AM CDT SINUSOTOMY ENDOSCOPY FRONTAL 03/01/2024 11:47 AM CDT Rhinosinusitis Chronic Sinusitis Case Notes Financial Economist 708 [employer] NAVIGATION 03/01/2024 11:47 AM CDT Rhinosinusitis Chronic Sinusitis Case Notes Financial Economist 708 ENDOSCOPIC SPHENOIDOTOMY WITH TISSUE REMOVAL 03/01/2024 11:47 AM CDT Rhinosinusitis Chronic Sinusitis Case Notes Financial Economist 708 ETHMOIDECTOMY ENDOSCOPY 03/01/20 11:47 AM CDT Rhinosinusitis Chronic Sinusitis Case Notes Financial Economist 708 ENDOSCOPIC MAXILLARY ANTROSTOMY WITH TISSUE REMOVAL 03/01/2024 11:47 AM CDT Rhinosinusitis Chronic Sinusitis Case Notes Financial Economist 708 OTORHINOLARYNGOLOGY IMAGE EXAM Routine 01/17/2024 9:15 [...] permanent sections. ??Grossed by Ishmael Wooten, P.A. ([facility]). B. ??Received fresh in a collection sock labeled right sinonasal contents is a 3.8 x 2 x 1 cm aggregate of campbell-pink soft tissue, cartilage, and bony fragments admixed with blood. ??All submitted for permanent sections. ??Grossed by Ishmael Wooten, P.A. ([facility]). 03/06/2024 9:25 AM CDT STMA [...] Barton M.D. LAB SURG PATH ORD ERABLES [facility] [address] [place] [address], [facility] [address] [facility] [address] [place] [address] * LDA ANE ENDOTRACHEAL AIRWAY (03/01/2024 12:33 PM CDT) Narrative Frances Garcia APRN, ELEVATOR TECHNICIAN, D.N.P. - 03/01/2024 12:33 PM CDT Frances Garcia APRN, CRNA D.N.P. ? 03/01/2024 12:34 PM Airway Date/Time: 03/01/2024 12:33 PM Performed by: Frances Garcia APRN, CRNA D.N.P. Authorized by: Francisco Javier Pugh M.D. ?? Patient location during procedure: OR / Procedure Area PROCEDURE DETAILS: Mask difficulty assessment: easy mask Final airway type: video laryngoscope Laryngeal Manipulation: no ?? Final best view of glottic structures - Cormack/Lehane Score: grade 1 ETT location: oral VL device: glide scope Aurora scope blade size: 3 Tube size: 7 [...] CDT) 03/01/2024 11:5 1 AM CDT Narrative IIWY - 03/01/2024 3:45 PM CDT This order has been created and auto-finalized to support the import of images acquired without order. The clinical documentation to support these images can be found on the encounter that produced images. Provider Not In System IMG NON RAD IMAGI NG PROCEDURES IIMS NA * HXZZORDERS (04/05/2013 11:55 AM CDT) [...] is negative. Testing is performed using the Ortho X-Scan Imagings Anti-HIV 1+2 chemiluminescence immunoassay. Test Performed by: [address] [address] Passenger Service Manager: Panchito Moses III, M.D. Blood 04/05/2013 11:5 5 AM CDT Juanita Stein M.D. LAB HISTORICAL OR DERS POWERCHART from Last 3 Months or Most Recently Relevant to Health Maintenance Care Teams Electromechanical Equipment Assembler Relationship Specialty Start Date End Date Elsewhere, Pcp PCP - General Internal Medicine 01/16/24
--- OUTSIDE RECORDS SUMMARY | 2024-03-18 12:16 | XMS_ITS | Encounter Summary ---
Author Organization [facility] Address [address] [place] [address] Care Team Providers Care Jazz Musician Name Role Phone Elsewhere, Pcp Primary Care Provider Unavailabl e Encounter Details Date Type Department Care Team ([facility] st Contact Info) Description 03/01/2024 11:55 AM CDT Ancillary Procedure Department of General Surgery Social History Tobacco Use Types Packs/Day Years Used Date Smoking Tobacco: Former Cigarettes Smokeless Tobacco: Never Comments:Smoked 10+ years, q uit tobacco smoke 2021, then switched to vape, uses 60mg per tank, 1 tank per week Alcohol Use Standard Drinks/Week Comments Never 0 (1 standard drink = 0.6 oz pur e alcohol) [facility] Utilities Answer Date Recorded In the [...] your living situation today? I have a [facility] place to live 01/16/2024 Sex and [...] CDT Office Visit Department of Otorhinolaryngology in [place], [place] [address] [place] [address] Christy Barton M.D. [address] [place] [address] documented as of this encounter Procedures Procedure Name Priority Date/Time Associated Diagnosis Comments SURGERY IMAGE EXAM Routine 03/01/2024 11 :55 AM CDT documented in this encounter Results * ENDOSCOPIC MAXILLARY ANTROSTOMY WITH TISSUE REMOVAL-Surgery [...] on filedocumented in this encounter Care Teams Jazz Musician Relationship Specialty Start Date End Date Elsewhere, Pcp PCP - General Internal Medicine 01/16/24 documented as of this encounter
--- OUTSIDE RECORDS SUMMARY | 2024-03-18 12:16 | XMS_ITS ---
Author Organization [facility] Address [address] [place] [address] Care Team Providers Care Dredge Deckhand Name Role Phone Unavailable Unavailable Unavailable Surgery Details Not on file Complications Check Surgery Details section. Procedure Estimated Blood Loss Check Surgery Details section. Procedure Findings Check Surgery Details section. Procedure Specimens Taken Check Surgery Details section.
--- OUTSIDE RECORDS SUMMARY | 2024-03-18 12:16 | XMS_ITS | Encounter Summary ---
Author Organization [facility] Address [address] [place] [address] Care Team Providers Care Lift Truck Mechanic Name Role Phone Elsewhere, Pcp Primary Care Provider Unavailabl e Reason for Visit * Auth/Cert (Routine) Specialty Diagnoses / Procedures Referred By Yordy whiteside Referred To Contact Diagnoses Rhinosinusitis Chronic Sinusitis Rhinosinusitis Chronic [J32.8] Sinusitis [J32.9] Procedures UT NSL/SINS NDSC SPHN TISS RMVL UT ENDO NSL MAX ANTROST W RMV TIS UT ENDO NSL W FRNTL SINUS EXPLOR UT STRTCTC COMP-ASSIST CRNL EXTRA ENDOSCOPIC MAXILLARY ANTROSTOMY WITH TISSUE REMOVAL ETHMOIDECTOMY ENDOSCOPY ENDOSCOPIC SPHENOIDOTOMY WITH TISSUE REMOVAL EXTRADURAL COMPUTER NAVIGATION SINUSOTOMY ENDOSCOPY FRONTAL Christy Barton M.D. [address] [place] [phone] Referral ID Status Reason Start Date Expiration Date Visits Re quested Visits Authorized [id number] 1 1 Encounter Details Date Type Department Care Team (Late st Contact Info) Description 03/01/2024 12:07 PM CDT Anesthesia Event RST ROMB MAIN OR [address] [place] [phone] Alvaro Monae M.D. [address] [place] [phone] Frances Garcia, PROFESSOR OF PSYCHIATRY, ALYSON, D.N.P. [address] [place] [phone] Anesthesia Record Procedure Summary Procedure Name Responsible Anesthesiologist Anesthesia Start Time Anesthesia Stop Time ENDOSCOPIC MAXILLARY ANTROSTOMY, TISSUE REMOVAL. (Bilateral) Alvaro Monae M.D. 03/01/24 1207 03/01/24 155 6 Events Date Time Event Comment 03/01/2024 1111 1207 An Start Machine/Equipme nt Checked Infection Precautions Followed Procedure/Site Verified NPO Status Verified Supine Standard ASA Monitors Applied 1208 An Induction 1210 An Intubation 1225 Turnover to Proceduralist 1303 Proc Start 1315 Anes CS Handoff I, Frances Bolaños APRN, PARKING GARAGE MANAGER, D.N.P., attest that I have reconciled the controlled substances and that I have reviewed all the significant information with the next anesthesia provider assuming care of this patient. 1330 Anes CS Handoff I, Kelsy lopez APRN, ALYSON, DNAP, attest that I have reconciled the controlled substances and that I have reviewed all the significant information with the next anesthesia provider assuming care of this patient. 1536 Proc Fin 1541 Turnover to ANE Staff 1546 Airway Removal Criteria Met 1546 Extubation/Airway Removed 1550 an stop data 1556 An End I completed my handoff to the receiving staff during which we 1. Identified the patient 2. Identified the responsible provider 3. Reviewed the pertinent medical history 4. Discussed the surgical course 5. Reviewed intra-op anesthesia management and issues during anesthesia 6. Set expectations for post-procedure period 7. Allowed opportunity for questions and acknowledgement of understanding. Meds Name Total lidocaine 2% (mg) injection 100 mg succinylcholine 20 mg/mL injection 120 m g phenylephrine 100 mcg/mL injection 100 m cg ondansetron 4 mg/2 mL injection 4 mg propofol 10 mg/mL infusion 1,434.67 mg propofol 10 mg/mL injection 200 mg remifentaniL 20 mcg/mL in NaCl 0.9% 100 mL infusion (Ultiva) 2.8 mg phenylephrine 20 mg/250 mL infusion 4.36 mg dexAMETHasone (Decadron) injection 4 mg/ mL 4 mg ceFAZolin (Ancef) injection 1 g/5 mL 4 g haloperidol 5 mg/mL injection 1 mg Lactated Ringers Free Drip 1,100 mL * Agents No agents on file. * Blood No blood administrations on file. Lines, Drains, and Airways Type Details Placement Removal Wound 03/01/24; N; Incisio n; Nose; Bilateral; sinus surgery; posiSepX and vectra F 03/01/24 0000 by Rosa Ken, RHelenN. Peripheral IV Placement Date: 02/14 01/07; Placement Time: 1126; Catheter Size: 20 G; Orientation: Anterior, Lower, Right; Location: Forearm; Site Prep: Chlorhexidine (Preferred); Technique: Anatomical landmarks; Insertion Attempts: 1 03/01/24 1126 by Talita Tovar ETT Placement Date: 02/14 01/07; Placement Time: 1233 (created via procedure documentation); Mask Ventilation: Easy mask; Technique: Video laryngoscopy; Type: Standard ETT; Single Lumen Tube Size: 7 mm; Cuffed: Yes; Location: Oral; Grade View: Grade 1; Insertion Attempts: 1; Placement Verification: Bilateral breath sounds, Positive ETCO2, Symmetrical chest wall movement; Removal Date: 03/01/24; Removal Time: 1546 03/01/24 1233 by Frances Garcia APRN, CRNA, D.N.P. 03/01/24 1546 by Devin Saeed APRN, CRNA, DNAP documented in this encounter Social History Tobacco Use Types Packs/Day Years Used Date Smoking Tobacco: Former Cigarettes Smokeless Tobacco: Never Comments:Smoked 10+ years, q uit tobacco smoke 2021, then switched to vape, uses 60mg per tank, 1 tank per week Alcohol Use Standard Drinks/Week Comments Never 0 (1 standard drink = 0.6 oz pur e alcohol) [facility] Utilities Answer Date Recorded In the past 12 months has [employer], oil, or water [employer] threatened to shut off services in your [...] your living situation today? I have a [facility] place to live 01/16/2024 Sex and Gender Information Value Date Recorded Sex Assigned at Female 01/16/2024 1:03 PM CDT Gender Identity Female 01/16/2024 1:03 PM CDT Sexual Orientation Straight 01/16/2024 1: 03 PM CDT documented as of this encounter OR Notes * Anesthesia Postprocedure Evaluation - Mayank Cho M.D. - 03/01/2024 4:37 PM CDT Patient: Shoshana Cobb Procedure Summary Date: 03/01/24 Room / Location: [place] [address] / [facility] in [place], [place] Anesthesia Start: 1207 Anesthesia Stop: 1556 Procedures: ENDOSCOPIC MAXILLARY ANTROSTOMY, TISSUE REMOVAL. (Bilateral) ETHMOIDECTOMY ENDOSCOPY. (Bilateral: Nose) ENDOSCOPIC SPHENOIDOTOMY, TISSUE REMOVAL. (Bilateral: Nose) EXTRADURAL COMPUTER NAVIGATION. SINUSOTOMY ENDOSCOPY FRONTAL. (Bilateral: Nose) Diagnosis: Rhinosinusitis Chronic Sinusitis (Rhinosinusitis Chronic [J32.8], Sinusitis [J32.9].) Providers: Christy Barton M.D. Responsible Provider: Alvaro Monae M.D. Anesthesia Type: general ASA Status: 2 Anesthesia Type: general Last vitals Vitals Value Taken Time BP 112/70 03/01/24 1600 Temp 36.6 ??C 03/01/24 1555 Pulse 101 03/01/24 1601 Resp 23 03/01/24 1601 SpO2 96 % 03/01/24 1601 Vitals shown include unfiled device data. Please reference Vitals flowsheet for most recent vital signs. Anesthesia Post Evaluation Patient Disposition: dismissal Cardiovascular status: hemodynamics (HR & BP) acceptable Respiratory status: patent airway with spontaneous effort Temperature: normothermic Oxygen requirements: room air Level of consciousness: awake Pain score: pain adequately controlled and/or at baseline Post Op nausea/vomiting: none Hydration status: euvolemic Notable Events No notable events documented. * Anesthesia Procedure Notes - Frances Garcia APRN, CRNA, D.N.P. - 03/01/2024 12:33 PM CDTAssociated Order(s): Airway Airway Date/Time: 03/01/2024 12:33 PM Performed by: Frances Garcia APRN, CRNA, D.N.P. Authorized by: Francisco Javier Pugh M.D. Patient location during procedure: OR / Procedure Area PROCEDURE DETAILS: Mask difficulty assessment: easy mask Final airway type: video laryngoscope Laryngeal Manipulation: no Final best view of glottic structures - Cormack/Lehane Score: grade 1 ETT location: oral VL device: glide scope Char[place] scope blade size: 3 Tube size: 7 ETT distance at teeth/gum: 23 Oral tube type: standard ETT Cuffed: yes Leak Test Performed: no Number of attempt to successful placement: 1 Airway confirmation: bilateral breath sounds, positive ETCO2 and bilateral chest rise Other previous techniques attempted: none PRE PROCEDURE DETAILS: Pre evaluation for airway management: procedure Urgency: elective Preop assessment of probable difficulty: no difficulty anticipated Preoxygenation: bag valve mask SEDATION / ANESTHESIA Anesthesia method: anesthesia POST PROCEDURE DETAILS: Procedure outcome: successful Notable Events: no complications * Anesthesia Preprocedure Evaluation - Francisco Javier Pugh M.D. - 03/01/2024 11:09 AM CDT Preprocedure Anesthesia & H&P Assessment Procedure Summary Date/Time: 03/01/24 0907 Procedures: ENDOSCOPIC MAXILLARY ANTROSTOMY, TISSUE REMOVAL. (Bilateral) ETHMOIDECTOMY ENDOSCOPY. (Bilateral: Nose) ENDOSCOPIC SPHENOIDOTOMY, TISSUE REMOVAL. (Bilateral: Nose) EXTRADURAL COMPUTER NAVIGATION. SINUSOTOMY ENDOSCOPY FRONTAL. (Bilateral: Nose) Diagnosis: Rhinosinusitis Chronic [J32.8] Sinusitis [J32.9] Pre-op diagnosis: Rhinosinusitis Chronic [J32.8], Sinusitis [J32.9]. Location: [place] [address] / [facility] in [place], [place] Providers: Christy Barton M.D. Pertinent components of the patient's history including current problem list, medical history, surgical history, family history, social history, medications and allergies were reviewed. Present illness and pre-op diagnosis were confirmed. The planned surgery / procedure was verified with the patient / legal guardian. The patient's general health condition remains unchanged RELEVANT COMORBID CONDITIONS No relevant active problems OBJECTIVE PHYSICAL EXAMINATION Airway (HEENT) Mallampati: II TM Distance: >3 FB Neck ROM: Full Mouth Opening: >3 cm Cardiovascular Rhythm: Regular Pulmonary Pulmonary Assessment: Clear General / Constitutional Constitutional Assessment: Normal ASSESSMENT / PLAN ANESTHESIA PLAN ASA: 2 Anesthesia Plan: general Patient seen and allergies reviewed, anesthesia plan and risks discussed directly with patient /legal guardian or through an roll forming supervisor. Risks/Benefits/Alternatives of Blood transfusion discussed with patient / legal guardian, includingan opportunity to ask questions and/or decline some or all transfusion therapies. The patient / legal guardian consented to the use of all blood products, as deemed medically necessary Approval to Proceed: approved for anesthesia documented in this encounter Plan of Treatment Upcoming Encounters Date Type Department Care Team (Late st Contact Info) Description 05/10/2024 3:00 PM CDT Office Visit Department of Otorhinolaryngology in [place], [place] [address] [place] [address] Christy Barton M.D. [address] [place] [address] documented as of this encounter Procedures Procedure Name Priority Date/Time Associated Diagnosis Comments LDA ANE ENDOTRACHEAL AIRWAY Routine 03/01/2024 12:33 PM CDT documented in this encounter Results * LDA ANE ENDOTRACHEAL AIRWAY (03/01/2024 12:33 [...] ETT location: oral VL device: glide scope [place] scope blade size: 3 Tube size: 7 [...] Francisco Javier Pugh M.D. ANESTHESIA ORDERA BLES documented in this encounter Visit Diagnoses Not on filedocumented in this encounter Administered Medications Inactive Administered Medications - up to 3 most recent administrations Medication Order MAR Action Action Date Dose Rate Site ceFAZolin injection (Ancef) intravenous, As needed, Starting on Mon03/01/24 at 1238, Anesthesia Intra-op Given 03/01/2024 3:30 PM CDT 2 g Given 03/01/2024 12:38 PM CDT 2 g dexAMETHasone injection (Decadron) intravenous, As needed, Starting on Mon03/01/24 at 1229, Anesthesia Intra-op Given 03/01/2024 12:29 PM CDT 4 mg haloperidol lactate injection (HaldoL) intravenous, As needed, Starting on Mon03/01/24 at 1533, Anesthesia Intra-op Given 03/01/2024 3:33 PM CDT 1 mg Lactated Ringer's intravenous, Continuous Infusion: Per Instructions PRN, Starting on Mon03/01/24 at 1209, Anesthesia Intra-op New Bag 03/01/2024 3:33 PM CDT New Bag 03/01/2024 12:09 PM CDT lidocaine (PF) (cardiac) injection intravenous, As needed, Starting on Mon03/01/24 at 1210, Anesthesia Intra-op Given 03/01/2024 12:10 PM CDT 100 mg ondansetron (PF) injection (Zofran) intravenous, As needed, Starting on Mon03/01/24 at 1533, Anesthesia Intra-op Given 03/01/2024 3:33 PM CDT 4 mg phenylephrine 80 mcg/mL in NaCl 0.9% 250 mL infusion intravenous, Continuous Infusion: Per Instructions PRN, Starting on Mon03/01/24 at 1235, Anesthesia Intra-op Rate/Dose Change 03/01/2024 2:33 PM CDT 0.3 mcg/kg/min 14.76 mL/hr Rate/Dose Change 03/01/2024 1:23 PM CDT 0.4 mcg/kg/min 19. 68 mL/hr Rate/Dose Change 03/01/2024 12:43 PM CDT 0.3 mcg/kg/min 14 .76 mL/hr phenylephrine injection intravenous, As needed, Starting on Mon03/01/24 at 1242, Anesthesia Intra-op Given 03/01/2024 12:42 PM CDT 100 mcg propofol 10 mg/mL infusion (Diprivan) intravenous, Continuous Infusion: Per Instructions PRN, Starting on Mon03/01/24 at 1211, Anesthesia Intra-op Rate/Dose Change 03/01/2024 12:48 PM CDT 100 mcg/kg/min 39.36 mL/hr Rate/Dose Change 03/01/2024 12:39 PM CDT 130 mcg/kg/min 51 .168 mL/hr New Bag 03/01/2024 12:11 PM CDT 150 mcg/kg/min 59.04 mL /hr propofoL injection (Diprivan) intravenous, As needed, Starting on Mon03/01/24 at 1210, Anesthesia Intra-op Given 03/01/2024 12:10 PM CDT 50 mg Given 03/01/2024 12:09 PM CDT 150 mg remifentaniL 20 mcg/mL in NaCl 0.9% 100 mL infusion (Ultiva) intravenous, Continuous Infusion: Per Instructions PRN, Starting on Mon03/01/24 at 1211, Anesthesia Intra-op Rate/Dose Change 03/01/2024 1:38 PM CDT 0.2 mcg/kg/min 39.36 mL/hr Rate/Dose Change 03/01/2024 1:04 PM CDT 0.25 mcg/kg/min 49 .2 mL/hr New Bag 03/01/2024 12:11 PM CDT 0.2 mcg/kg/min 39.36 mL /hr succinylcholine (PF) injection (Anectine) intravenous, As needed, Starting on Mon03/01/24 at 1212, Anesthesia Intra-op Given 03/01/2024 12:12 PM CDT 120 mg documented in this encounter Care Teams Lift Truck Mechanic Relationship Specialty Start Date End Date Elsewhere, Pcp PCP - General Internal Medicine 01/16/24 documented as of this encounter
--- OUTSIDE RECORDS SUMMARY | 2024-03-18 12:17 | XMS_ITS | Encounter Summary ---
Author Organization [facility] Address [address] [place] [address] Care Team Providers Care Advisor To Command In Combat Name Role Phone Elsewhere, Pcp Primary Care Provider Unavailabl e Reason for Visit * Reason Onset Date Comments Pre-visit Intake 01/16/2024 Encounter Details Date Type Department Care Team (Latest Contact Info) Description 01/16/2024 12:45 PM CDT Clinical Communication Virtual Review in [place], [place] [address] [place] [address] Pre-visit Intake Social History Tobacco Use Types Packs/Day Years Used Date Smoking Tobacco: Former Cigarettes Smokeless Tobacco: Never Tobacco Cessation:Counseling Given: Not Answered Comments:Smoked 10+ years, quit tobacco smoke 2021, then switched to vape, uses 60mg per tank, 1 tank per week [facility] Utilities Answer Date Recorded In the past [...] your living situation today? I have a [facility] place to live 01/16/2024 Sex [...] CDT Office Visit Department of Otorhinolaryngology in [place], [place] [address] [place] [phone] Christy Barton M.D. [address] [place] [address] documented as of this encounter Visit Diagnoses Not on filedocumented in this encounter Care Teams Advisor To Command In Combat Relationship Specialty Start Date End Date Elsewhere, Pcp PCP - General Internal Medicine 01/16/24 documented as of this encounter
--- OUTSIDE RECORDS SUMMARY | 2024-03-18 12:17 | XMS_ITS | Encounter Summary ---
Author Organization [facility] Address [address] [place] [address] Care Team Providers Care Tax Accounting Manager Name Role Phone Unavailable Primary Care Provider Unavailabl e Reason for Visit * Reason Onset Date Comments [facility] - Outside Materials 11/10/2023 Encounter Details Date Type Department Care Team (Latest Contact Info) Description 11/10/2023 Clinical Communication Division of Allergic Diseases in [place], [place] [address] [place] [phone] Giacomo Leigh M.D., Ph.D. [address] [place] [phone] [facility] [employer] Social History Tobacco Use Types Packs/Day Years Used Date Smoking Tobacco: Every Day Nutrition Answer Date Recorded Nutrition: EVOO Fat Source Unknown 09/17 Nutrition: Servings of Fruits/Vegetables per Day Not on file 09/18/2023 Dental Answer Date Recorded Dental: Regular Dentist Unknown 09/18/19 Sex and Gender Information Value Date Recorded Sex Assigned at Female 01/16/2024 1:03 PM CDT Gender Identity Female 01/16/2024 1:03 PM CDT Sexual Orientation Straight 01/16/2024 1: 03 PM CDT documented as of this encounter Plan of Treatment Upcoming Encounters Date Type Department Care Team (Late Contact Info) Description 05/10/2024 3:00 PM CDT Office Visit Department of Otorhinolaryngology in [place], [place] [address] [place] [phone] Christy Barton M.D. [address] [place] [phone] documented as of this encounter Visit Diagnoses Not on filedocumented in this encounter
--- OUTSIDE RECORDS SUMMARY | 2024-03-18 12:17 | XMS_ITS | Encounter Summary ---
Author Organization [facility] Address [address] [place] [address] Care Team Providers Care Reproducer Name Role Phone Elsewhere, Pcp Primary Care Provider Unavailabl e Encounter Details Date Type Department Care Team (Latest Contact Info) Description 01/17/2024 Clinical Communication Department of Otorhinolaryngology in [place], [place] [address] [place] [phone] Christy Barton M.D. [address] [place] [phone] Social History Tobacco Use Types Packs/Day Years Used Date Smoking Tobacco: Former Cigarettes Smokeless Tobacco: Never Comments:Smoked 10+ years, q uit tobacco smoke 2021, then switched to vape, uses 60mg per tank, 1 tank per week [facility] Utilities Answer Date Recorded In the past [address] [facility] electric, gas, oil, or water company threatened [...] your living situation today? I have a [facility] place to live 01/16/2024 Sex and Gender Information Value Date Recorded Sex Assigned at Female 01/16/2024 1:03 PM CDT Gender Identity Female 01/16/2024 1:03 PM CDT Sexual Orientation Straight 01/16/2024 1: 03 PM CDT documented as of this encounter Miscellaneous Notes * Telephone Encounter - Magdalena Lee - 01/17/2024 1:33 PM CDT A PA has been started for Budesonide. Please do not close this case unless we have an approval or definite denial (for appeal purposes) This medication is being written off label. Thank you, documented in this encounter Plan of Treatment Upcoming Encounters Date Type Department Care Team (Late st Contact Info) Description 05/10/2024 3:00 PM CDT Office Visit Department of Otorhinolaryngology in [place], [place] [address] [place] [phone] Christy Barton M.D. [address] [place] [phone] documented as of this encounter Visit Diagnoses Not on filedocumented in this encounter Care Teams Reproducer Relationship Specialty Start Date End Date Elsewhere, Pcp PCP - General Internal Medicine 01/16/24 documented as of this encounter
--- OUTSIDE RECORDS SUMMARY | 2024-03-18 12:17 | XMS_ITS | Encounter Summary ---
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 [address] [place] [phone] Christy Barton M.D. [address] [place] [address] Referral ID Status Reason Start Date Expiration Date Visits Re quested Visits Authorized [id number] Closed 01/17/2024 07/18/2025 1 1 * Medication Prior Authorization - Closed Specialty Diagnoses / Procedures Referred By Contac t Referred To Contact Christy Barton M.D. 200 [place] [address] Referral ID Status Reason Start Date Expiration Date Visits Re quested Visits Authorized [id number] Closed 1 1 * Outpatient (Routine) - Closed Specialty Diagnoses / Procedures Referred By Contac t Referred To Contact Otorhinolaryngology Christy Barton M.D. 200 [place] [address] [facility] Referral ID Status Reason Start Date Expiration Date Visits Re quested Visits Authorized [id number] Closed 01/17/2024 07/18/2025 1 1 Scheduling Instructions 7-10 Days post op Reason for Visit * Outpatient (Routine) - Closed Specialty Diagnoses / Procedures Referred By Yordy whiteside Referred To Contact Otorhinolaryngology Diagnoses Sinusitis Giacomo Leigh M.D., Ph.D. [address] [place] [address] [facility] Referral ID Status Reason Start Date Expiration Date Visits Re quested Visits Authorized [id number] Closed 10/16/2023 04/16/2025 1 1 Encounter Details Date Type Department Care Team (Latest Contact Info) Description 01/17/2024 9:15 AM CDT Comprehensive Visit Department of Otorhinolaryngology in [place], [place] [address] [place] [address] Christy Barton M.D. [address] [place] [phone] Rhinosinusitis Chronic (Primary Dx); Polyp Nasal; Sinusitis Social History Tobacco Use Types Packs/Day Years Used Date Smoking Tobacco: Former Cigarettes Smokeless Tobacco: Never Comments:Smoked 10+ years, q uit tobacco smoke 2021, then switched to vape, uses 60mg per tank, 1 tank per week [facility] Utilities Answer Date Recorded In the past 12 months has e [employer], gas, oil, or water [employer] threatened to shut off services in your [...] your living situation today? I have a [facility] to live 01/16/2024 Sex and Gender Information Value Date Recorded Sex Assigned at Female 01/16/2024 1:03 PM CDT Gender Identity Female 01/16/2024 1:03 PM CDT Sexual Orientation Straight 01/16/2024 1: 03 PM CDT documented as of this encounter Consult Notes * Adi Castellon - 01/17/2024 9:15 AM CDT Images from the original note were not included. SUBJECTIVE CHIEF COMPLAINT / REASON FOR VISIT Shoshana Cobb is a 34 y.o. female who presents for evaluation of No chief complaint on file.. HISTORY OF PRESENT ILLNESS Rhinosinusitis: Chronic without nasal polyposis. Previous Sinus Surgery: Yes October 2022 septoplasty and . Allergic Rhinitis:Yes skin testing in September 2022 revealed allergy to mold. Asthma: No. Aspirin Sensitivity:No. Shoshana Cobb presents to the outpatient Rhinology clinic today with a history of CRS and was referred to our Rhinology clinic by Dr. Lamb. Upon questioning she reports face pain, post-nasal drainage and denies nasal obstruction,. These symptoms have been present for for over a year.The symptom that is most bothersome is post nasal drainage. The patient has had previous sinus surgery with Dr. Nuno. Prior to this appointment she has did a short trial of nasal sprays after her surgery in 2022 but has since stopped using nasal sprays because she did think it helped. She has no asthma, heart burn, or migraines. Skin testing was done September 2022 and revealed allergy to mold. She saw Dr. Leigh for an allergy evaluation and was noted to have chronic sinusitis and an incidental meningioma was found, which the patient believes was noted in the past. OBJECTIVE PHYSICAL EXAM Physical Exam General: Well appearing, no acute distress Head: Normocephalic, atraumatic Ears: TM and external ear canals clear Nose: septum midline Neck: no lymphadenopathy PROCEDURE NOTE PROCEDURE Rigid nasal endoscopy. PRE-PROCEDURE DIAGNOSIS: Nasal congestion. POST-PROCEDURE DIAGNOSIS: Nasal congestion. INDICATION: Nasal congestion. INFORMED CONSENT: After explaining the risks, benefits and alternatives of nasal endoscopy, the patient confirmed understanding verbally and did wish to proceed. FINDINGS After topical anesthesia and decongestion with Lidocaine and Afrin spray, rigid endoscopy was performed using a 30 degree endoscope. The septum was midline. Inferior turbinates were congested bilaterally. Right middle turbinate lateralized unable to view to maxillary ostia. Mucopurulent drained noted anterior to left maxillary antrostomy, unable to identify natural os, frontal recess or sphenoid os. There were no complications and the patient tolerated the procedure well. Right Side Left Side Polyp Absent = 0 Absent = 0 Edema Mild/moderate = 1 Mild/moderate = 1 Discharge Absent = 0 Purulent or thick = 2 Scarring Absent = 0 Absent = 0 Crusting Absent = 0 Absent = 0 Sil-Jonatan Endoscopy Score = 4. ASSESSMENT / PLAN #1 Chronic Rhinosinusitis without polyps It was a pleasure to see Ms. Cobb in clinic today. Her endoscopic findings, symptoms, and imaging are consistent with chronic rhinosinusitis. Her recurring and worsening symptoms after her firstsinus surgery and most recent imaging suggests recirculation syndrome. A natural os was not appreciated on today's endoscopy but mucopurulent drainage in the left nasal cavity was observed, which raises my suspicion for recirculation syndrome at least on the left. 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 We discussed the nature of chronic sinusitis and the role of medical and surgical management for this disease. We talked about how surgery is aids the opening of the sinuses and the mainstay of treatment is steroid rinses. While she would benefit from revision endoscopic sinus surgery to improve her sinus anatomy, she has not tried maximal medical management. I recommend a trial of steroid rinse and revaluation in one month. -Start Budesonide rises twice a day for 1 month -Follow-up via mychart or video visit in 1 month -If no improvement of symptoms after adequate trial of budesonide rinse, then revision endoscopic sinus surgery is recommend. We will hold her a surgical date of 03/01/24 as I suspect she will not have benefit with steroid irrigations due to her right lateralized middle turbinate and incomplete ethmoidectomies. The patient has failed medical management and continues to be symptomatic. We recorded her SNOT-22 score today and she has a recent CT sinus [...] the postoperative recommendations, including a 7-14 day follow up appointment. The patient understands that twice daily postoperative budesonide rinses will be the best way to reduce hersymptoms. Andrea Castellon, MS4 Associated attestation - Christy Barton M.D. - 01/18/2024 6:52 PM CDT I saw the patient with the medical student. I was present for or re-performed the History of Present Illness. I saw and evaluated the patient, participating in the medrano portions of the service and didmedical decision making. I have reviewed the above documentation and agree or amended. Christy Barton M.D. documented in this encounter Plan of Treatment Upcoming Encounters Date Type Department Care Team (Late st Contact Info) Description 05/10/2024 3:00 PM CDT Office Visit Department of Otorhinolaryngology in [place], [place] [address] [place] [address] Christy Barton M.D. [address] [place] [address] Scheduled Referrals Name Type Priority Associated Diagnoses Order Schedule Otorhinolaryngology Post Op (clinic) Outpatient Referral Routine 1 Occurrences starting 01/17/2024 until 04/18/2025 Otorhinolaryngology Pre Op (clinic) Outpatient Referral Routine Expected: 02/29/2024, Expires: 04/18/2025 documented as of this encounter Visit Diagnoses Diagnosis Rhinosinusitis Chronic- Primary Polyp Nasal Sinusitis documented in this encounter Care Teams Metal Storage Worker Relationship Specialty Start Date End Date Elsewhere, Pcp PCP - General Internal Medicine 01/16/24 documented as of this encounter
== END 2024-03-18 12:28 | disposition home or self-care (01) ==
PROVIDERS: Emergency Provider Family Medicine; PCP Family Medicine
DX: R21 Rash and other nonspecific skin eruption (principal)
CPT/HCPCS: 99283

== ENCOUNTER 2024-07-30 19:15 | Emergency (ER) | payer BC, SELFPAY ==
--- OUTSIDE RECORDS SUMMARY | 2024-07-30 19:17 | XMS_ITS | Clinical Summary ---
Author Organization [facility] Address [address] [place] [address] Care Team Providers Care Screen Vent Binder Name Role Phone Elsewhere, Pcp Primary Care Provider Unavailabl e Source Comments Patient records contain information from all sites at [facility]. For routine questions regarding patient records, call [phone] during business hours, M-F 8:00 AM - 5:00 PM Central Time. Record requests for emergency care only can be directed to [phone] at any time.[facility] Allergies Active Allergy Reactions Criticality Noted Date Comments Adhesive Rash 07/20/2011 Latex Rash 01/16/2024 Skin peeling Mold Other (see comments) 01/16/2024 Sneezing Medications tiZANidine (Zanaflex) 4 mg tablet Take 4 mg by mouth every 8 (eight) hours as needed. needed 4 Active triamcinolone (Kenalog) 0.1 % ointment Apply 1 Application topically 3 (three) times a day as needed for irritation or rash. 4 Active budesonide (Pulmicort) 0.5 mg/2 mL nebulizer solution Mix 1 ampule in sinus irrigation bottle and irrigate twice daily. 360 mL 3 4 Active oxyCODONE (Roxicodone) 5 mg immediate release tabletIndicatio ns:Acute Pain Exception Take 1 tablet (5 mg total) by mouth every 4 (four) hours as needed for moderate pain or score 4-6 of 10 Indication: Acute Pain Exception. 8 tablet 4 Active Active Problems Problem Noted Date Diagnosed Date [...] drink = 0.6 oz pur e alcohol) [facility] Utilities Answer Date Recorded In the past 12 months has e [employer], gas, oil, or water [employer] threatened to shut off services in your [...] your living situation today? 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 Gender Identity Female 01/16/2024 1:03 PM CDT Sexual Orientation Straight 01/16/2024 1: 03 PM CDT Last Filed Vital Signs Vital Sign Reading Time Taken Comments Blood Pressure 112/70 03/01/2024 4:00 PM CDT Pulse 99 03/01/2024 4:00 PM CDT Temperature 36.6 C (97.9 F) 03/01/2024 3:55 PM CDT Respiratory Rate 18 03/01/2024 4:00 PM CDT Oxygen Saturation 97% 03/01/2024 4:00 PM CDT Inhaled Oxygen Concentration - - Weight 65.6 kg (144 lb 10 oz) 03/01/2024 7:55 AM CDT Height 160 cm (5' 3) 03/01/2024 7:55 AM CDT Body Mass Index 25.62 03/01/2024 7:55 AM CDT Plan of Treatment Health Maintenance Due Date Last Done Comments Cervical/Vaginal Cancer Screening 1988 Lipid (Cholesterol) Screening 1988 Tobacco Cessation counseling 1988 Hepatitis B Vaccines (2 of 3 - 3-dose series) 02/11/2003 01/14/2003 COVID-19 Vaccine ( season) 2024 Influenza Vaccine (#1) 2024 9, 06/05/2019, 04/14/2016, Additional history exists Depression Screening (Annual PHQ-2) 07/17/2024 DTaP,Tdap,and Td Vaccines (9 - Td or Tdap) 10/30/2029 10/31/2019, 07/25/2013, 07/20/2011, Additional history exists IPV Vaccines Completed 05/31/1993, 05/17, 12/04/1989, Additional history exists HIV Screening Completed 04/05/2013 HPV Vaccines Completed 10/07/2015, 11/2014, 07/21/2014, Additional history exists Pneumococcal vaccine (0-49 years) Aged Out No longer eligible based on patient's age to complete this topic Procedures Procedure Name Priority Date/Time Associated Diagnosis Comments HXZZORDERS Routine 04/05/2013 11:55 AM CDT from Last 3 Months or Most Recently Relevant to Health Maintenance Results * HXZZORDERS (04/05/2013 11:55 AM CDT) HIV-1/-2 [...] is negative. Testing is performed using the [employer] Anti-HIV 1+2 chemiluminescence immunoassay. Test Performed by: [place] [address] Wholesale Diamond Broker: Panchito Moses III, M.D. Blood 04/05/2013 11:5 5 AM CDT Juanita Stein M.D. LAB HISTORICAL ORDERS Fin al Result POWERCHART from Last 3 Months or Most Recently Relevant to Health Maintenance Insurance [facility] Care Teams Screen Vent Binder Relationship Specialty Start Date End Date Elsewhere, Pcp PCP - General Internal Medicine 01/16/24
--- OUTSIDE RECORDS SUMMARY | 2024-07-30 19:17 | XMS_ITS | Clinical Summary ---
Author Organization [facility] [employer] [facility] Address [place], [place] [address] Care Team Providers Care Orchid Superintendent Name Role Phone Sylvester Cole MD Primary Care Provider [phone] Allergies Active Allergy Reactions Criticality Noted Date Comments Adhesive Rash 07/20/2011 Latex Atopic Dermatitis 11/30/2020 Skin peels off Mold Runny Nose 03/19/2024 Medications olopatadine (PATANOL) 0.1 % ophthalmic solution 4 Active triamcinolone 0.1 % ointmentIndicat ions:Rash Apply topically to affected area(s) three times daily. 15 g 4 Active tiZANidine (ZANAFLEX) 4 mg tabletIndicatio ns:Neck muscle spasm Take 1 Tablet (4 mg) by mouth every 8 hours if needed for Muscle Spasm. 10 Tablet 4 Active cetirizine HCl (ZYRTEC ORAL) Take by mouth. A ctive budesonide (PULMICORT RESPULES) 0.5 mg/2 mL neb suspension Mix 1 ampule in sinus irrigation bottle and irrigate twice daily. 4 Active cyclobenzaprine (FLEXERIL) 5 mg tablet 4 Active Active Problems Problem Noted Date Diagnosed Date Acute neck pain 03/19/2024 Delivery normal 03/19/2024 Neck muscle strain 03/19/2024 Rash 03/19/2024 Pes anserinus tendinitis of right lower extremit y 06/02/2023 S/P right knee arthroscopy 03/31/2023 Tear of lateral meniscus of right knee, current 01/24/2023 Chondromalacia of patellofemoral joint, right H/O bilateral salpingectomy 07/17/2020 Overview (12/20/2022): Bilateral salpingectomy in 2020 Resolved Problems Problem Noted Date Diagnosed Date Resolved Date 08/06/2019 04/06/2023 Overview (11/01/2019): Estimated Date of Delivery: 01/21/20 Patient's last menstrual period was 04/23/2019 (approximate). Last Tdap- 10/31/2019 Last Flu vaccine- 06/05/2019 Glucose (GTT) result- Component Latest Ref Rng & Units 10/31/2019 HEMOGLOBIN 12.0 - 16.0 g/dL 10.7 (L) MCV 80 - 100 fL 95 GLUCOSE,GESTATIONAL 65 - 139 mg/dL 122 TREPONEMA PALLIDUM Negative Negative 20 week US: FINDINGS: Sonographic imaging demonstrates a single living intrauterine gestation. Fetus demonstrates a regular cardiac rate of 160 beats per minute. Fetus has a breech position. The placenta lies posteriorly without evidence of placenta previa. Marginal cord insertion into the placenta, 1.4 centimeters from the edge of the placenta. Amniotic fluid volume appears normal. Single deepest vertical pocket: 5.2 cm. The cervix is closed and measures 3.5 cm in length. The composite ultrasound gestational age is calculated at 19 weeks 4 days with an estimated sonographic due date of 01/23/2020. Allergies Allergen Reactions Adhesive Rash OB History Para Term AB Living 4 2 2 0 0 3 SAB TAB Ectopic Multiple Live Births 0 0 0 0 3 # Outcome Date GA Lbr Peter/2nd Weight Sex Delivery Anes PTL Lv 4 Current 3 Term 10/12/13 F N Name: Sadaf 2 03/26/10 38w0d 10:00 F Vag Name: Lisa 1 Term 06/15/07 40w0d 13:00 3.26 kg (7 lb 3 oz) M Vag Name: Angelito Create lab flowsheet for OB labs- Component Latest Ref Rng & Units 07/03/2019 07/03/2019 07/03/2019 10:53 AM 10:53 AM 10:53 AM ANTIBODY SCREEN Negative Negative SPECIMEN EXPIRATION DATE/TIME 07/06/19 23:59 HEMOGLOBIN 12.0 - 16.0 g/dL 14.1 MCV 80 - 100 fL 93 RUBELLA IGG ANTIBODY Positive 2.13 HEMOGLOBIN A1C SCREENING <=6.4 % 5.1 ABORH A Rh Positive HBSAG Nonreactive Nonreactive HEPATITIS C ANTIBODY Non-Reactive Non-Reactive HIV-1/HIV-2 ANTIBODY Non-Reactive Non-Reactive TREPONEMA PALLIDUM Negative Negative Past Medical History: . Date Supervision of other normal 02/22/2013 Past Surgical History: . Laterality Date NO PREVIOUS SURGERY No data on file. Problems (from 07/03/19 to present) No problems associated with this episode. KIM Velasco.....08/06/2019 8:34 AM Supervision of other normal 02/22/2013 04/14/2016 Supervision of other normal 02/05/2010 01/02/2012 Back pain complicating 12/11/2009 04/14/2016 Supervision of other normal 09/15/2009 01/22/2010 Tobacco use disorder 08/24/2007 010 Supervision of normal first 03/23/2007 08/19/2009 PHARYNGITIS, ACUTE 04/17/2000 7 Poor growth affecting management of mother in third trimester 04/06/2023 Encounters Date Type Department Care Team Description 05/13/2024 2:15 PM CDT Nurse/Clinic Staff Only [facility] [address] [place] [address] Immunization/Injection (MMR AND VARICELLA VACCINES ); Immunization/Injection 05/13/2024 Travel 04/29/2024 3:45 PM CDT Nurse/Clinic Staff Only [facility] [address] [place] [address] Immunization/Injection (MMR booster); Error-please disregard (NEED TO CANCEL APPT ) 04/29/2024 Travel from Last 3 Months Immunizations Name Administration Dates Next Due AMB Influenza, IIV3 (Age >=3 years)(Flu Clinic Only) 05/13/2008 DTaP 05/31/1993, 0,03/06/1989,1987,1988 Dtap-5 Pertussis Antigens 05/31/1993,,03/06/1989,1987,1988 HPV 9 (Gardasil 9) 10/07/2015,07/21/2014, 013 Hepatitis B (Peds) 01/14/2003, 0,11/08/1999,1999 Human Papilloma Virus Vaccine 07/21/2014, 013 INFLUENZA, IIV3 PF (AGE >= 6 MO) 09/15/2009 Inactivated Polio Vaccine 05/31/1993,,1988,1987 Influenza A (H1N1), Inactiva kushal (Age >=3 Years) 09/01/2009 Influenza Virus, Unspecified 06/05/2019,06/03/20 13 Influenza, IIV3 (Age >=3 years) 05/21/2010,09/15,05/16/2007 Influenza, IIV4 04/14/2016,04/16/2015,07/21/2014 MMR 05/13/2024,12/04/1989 Polio Virus, Unspecified 05/31/1993,11/15,1988,1987 Td (Age >=7 Years) 03/17/2001 Tdap 10/31/2019,07/25/2013,07/20/2011 Varicella Vaccine 05/13/2024,04/13/2024 Family History Medical History Relation Name Comments Diabetes Father Hypertension Father Other Father psoriasis Good Health Mother Good Health Sister 1 Good Health Sister 2 Cancer-breast No Family History Cancer-colon No Family History Relation Name Status Comments Father Mother Sister 1 Sister 2 Social History Tobacco Use Types Packs/Day Years Used Date Smoking Tobacco: Former Cigarettes 0.5 15.4 1 995 - 12/08/2009 Smokeless Tobacco: Never Tobacco Cessation:Counseling Given: Not Answered Alcohol Use Standard Drinks/Week Comments No 0 (1 standard drink = 0.6 oz pur e alcohol) Alcoholic Drinks/day: 0 PHQ-2 Answer Date Recorded PHQ-2 TOTAL SCORE 0 04/06/2023 Social Connections Answer Date Recorded Frequency of Communication with Friends and Fami ly 0 04/06/2023 Financial Resource Strain Answer Date R ecorded Difficulty of Paying Living Expenses 3 04/06/2023 Difficulty of Paying Living Expenses Not on file 04/06/2023 Food Insecurity Answer Date Recorded Worried About Running Out of Food in the Last Ye ar 1 04/06/2023 Transportation Needs Answer Date Record ed Lack of Transportation (Medical) 1 04/06/2023 Housing Stability Answer Date Recorded Unable to Pay for Housing in the Last Year 1 04/06/2023 Comments No Sex and Gender Information Value Date Recorded Sex Assigned at Not on file Legal Sex Female 5:27 AM [employer] Gender Identity Not on file Sexual Orientation Not on file Occupation Industry Job Start Date Job End Date Not on file Not on file Not on file Not on file Not on file Not on file Not on file Not on file Obstetrics History Para Term AB IAB SAB Ectopic Multiple Livin g Live Births 4 2 2 3 3 Date Outcome GA Total Labor Labor/2nd/3rd Weight Sex Type Anes PTL Mary A1 A5 Name Clin 06/15 Term 40w 0d 13h 00m/ 3.26 kg (7 lb 3 oz) M Vag Angelito 03/26 38w 0d 10h 00m/ F Vag Lisa 10/12 Term F N [place] Last Filed Vital Signs Vital Sign Reading Time Taken Comments Blood Pressure 116/68 03/19/2024 2:32 PM CDT Pulse 114 03/19/2024 2:32 PM CDT Temperature 36.5 C (97.7 F) 11/16/2023 2:04 PM CDT Respiratory Rate 16 02/09/2023 11:30 AM CDT Oxygen Saturation 97% 03/19/2024 2:32 PM CDT Inhaled Oxygen Concentration - - Weight 66.7 kg (147 lb) 03/19/2024 2:32 PM CDT Height 160 cm (5' 3) 02/09/2023 6:59 AM CDT Body Mass Index 26.04 02/09/2023 6:59 AM CDT Plan of Treatment Health Maintenance Due Date Last Done Comments Pap test for age 21-65 09/06/2023 9, 09/06/2018, 09/05/2014, Additional history exists BMI (ht and wt on same day) for age 18+ 02/01/2024 01/31/2023, 09/02/2022, 03/16/2022, Additional history exists COVID-19 vaccine series ( season) 2024 Influenza for age 9-49 03/17/2024 9, 04/14/2016, 04/16/2015, Additional history exists Depression screening for age 12+ 04/06/2024 04/06/2023, 03/02/2022, 09/10/2019, Additional history exists Tetanus booster 10/30/2029 10/31/2019, 03/2014, 07/20/2011, Additional history exists HIV for age 15-65 Completed 07/03/2019, , 09/01/2009, Additional history exists Hepatitis C screening for age 18-79 Completed 07/03/2019 Tdap Completed 10/31/2019, 03/2014, 07/20/2011 Pneumococcal series for age 6-49 Aged Out No longer eligible based on patient's age to complete this topic Medical Devices Implanted Type Area Lab Support Service Tech Device Identifier Shelf Expiration Date Model / Serial / Lot Novostitch Pro Meniscal Repair System Implanted:Qty: 1 on 02/09/2023 by Corby Ko MD at [facility] Right: Knee [employer] 08/21/2024 / CTX-A003 / [id number] Novostitch Meniscal Repair System Implanted:Qty: 1 on 02/09/2023 by Corby Ko MD at [facility] Right: Knee 04/29/2023 / CTX-R001 / [id number] Novostitch Meniscal Repair System Implanted:Qty: 1 on 02/09/2023 by Corby Ko MD at [facility] Right: Knee [employer] 07/23/2023 / CTX-R001 / [id number] Novastitch Meniscal Repair Cartridge 2-0 Implanted:Qty: 1 on 02/09/2023 by Corby Ko MD at [facility] Right: Knee 10/17/2023 / CTX-R001 / [id number] Fast Fix Flex Curved Helicopter Crew Chief, Rae, Cannula Set Implanted:Qty: 1 on 02/09/2023 by Corby Ko MD at [facility] Right: Knee [employer] 06/10/2025 / [id number] / [id number] Fast Fix Flex Curved Helicopter Crew Chief, Rae, Cannula Set Implanted:Qty: 1 on 02/09/2023 by Corby Ko MD at [facility] Right: Knee [employer] 06/09/2025 / [id number] / [id number] Procedures Procedure Name Priority Date/Time Associated Diagnosis Comments ANTI HIV 1/2 Routine 07/03/2019 10:53 AM [employer] Encounter for supervision of normal first in first trimester ANTI HCV Routine 07/03/2019 10:53 AM [employer] Encounter for supervision of normal first in first trimester CABLE SPLICER APPRENTICE THIN PREP PAP SCREEN IMAGED Routine 09/06/2018 11:20 AM [employer] Cervical cancer screening from Last 3 Months or Most Recently Relevant to Health Maintenance Results * ANTI HCV (07/03/2019 10:53 AM [employer]) Pathologist [facility] HEPATITIS C ANTIBODY Non-React claudio Non-React claudio 07/03/2019 7:57 PM [employer] [facility] Comment:Antibodies to HCV no t detected; does not exclude the possibility of exposure to HCV. Blood BLOOD SPECIMEN / Unknown Venipuncture / Unknown 07/03/2019 10:53 AM [employer] 07/03/2019 10:55 AM [employer] us Nicol MARIA SEND OUTS Final R esult [facility] [address] [place] [address], [place] * ANTI HIV 1/2 (07/03/2019 10:53 AM [employer]) Pathologist [facility] HIV-1/HIV-2 ANTIBODY Non-Reacti ve Non-Reacti ve 07/03/2019 7:52 PM [employer] [facility] Comment:HIV-1 p24 and HIV-1/ HIV-2 Ab not detected. Blood BLOOD SPECIMEN / Unknown Venipuncture / Unknown 07/03/2019 10:53 AM [employer] 07/03/2019 10:55 AM [employer] us Nicol MARIA SEND OUTS Final R esult [facility] [address] [place] [address], [place] * CABLE SPLICER APPRENTICE THIN PREP PAP SCREEN IMAGED (09/06/2018 11:20 AM [employer]) Case Report Gynecologic Cytology Report Case: [id number] Authorizing Provider: Racquel Tavarez MD Collected: 09/06/2018 1120 Ordering Location: [facility] Received: 09/06/2018 1127 Clinic First Screen: Sondra Leger Specimen: CABLE SPLICER APPRENTICE ThinPrep Vial Screening, Cervical 09/12/2018 9:27 AM [employer] [facility] INTERPRETATION/ RESULT NEGATIVE FOR INTRAEPITHELIAL LESION OR MALIGNANCY (NIL) (none) 09/12/2018 9:27 AM [employer] [facility] IMEN ADEQUACY Satisfactory for evaluation Endocervical component present 09/12/2018 9:27 AM [employer] [facility] HPV REQUEST HPV and PAP 09/12/2018 9:27 AM [employer] [facility] Date of LMP 08/06/2018 09/12/2018 9:27 AM [employer] [facility] Last Pap Date 09/05/14 09/12/2018 9:27 AM [employer] [facility] Last Pap Result NIL 9 9:27 AM [employer] [facility] Abnormal Pap or [place] Bx in last 5 years No 09/12/2018 9:27 AM [employer] [facility] Menstrual Status Regular Periods 09/12/2018 9:27 AM [employer] [facility] [place] Bx Done Today No 09/12/2018 9:27 AM [employer] [facility] Additional Information None given 09/12/2018 9:27 AM [facility] Automated Review Successful 09/12/2018 9:27 AM [facility] Comment:Specimen processed s uccessfully by automated refining engineer device, [employer] Works[employer] Imaging System, [employer] ANCILLARY TESTING CABLE SPLICER APPRENTICE HPV Ordered, Please see separate report 09/12/2018 9:27 AM [facility] Note The pap test is a screening technique, not a diagnostic procedure. It is used primarily to screen for squamous cancers and precursor lesions. Published studies have shown that it is subject to both false negative and false positive results. The pap test should not be used as the sole means to diagnose or exclude pre-malignant and malignant lesions. Cytology is screened and interpreted at [facility] - [address], [place] [address] and [facility] - [address]; [place] [address] and [facility] - [address]; [place] [address] and [facility] [address]; [place] [address] 09/12/2018 9:27 AM [facility] Other (Cervical) Non-Blood / Unknown 09/06/2018 11:20 AM [employer] 09/06/2018 11:27 AM [facility] Racquel Tavarez MD PATHOLOGY/CYTOLOGY Lakeisha baez Result [facility] [address] [place] [address], from Last 3 Months or Most Recently Relevant to Health Maintenance Insurance [facility] Member Subscriber Plan / Payer (Ef fective 2016-Present) Name:Shoshana Cobb Relation to Subscriber:Employee Name:[employer] Date of :2002 (Home) Address: [address] [place] [address] [place] [address] Payer ID:Not on file Group ID:Not on file Type:Not on file Address: [address] [place] [address] Advance Directives * Full Code (Latest Code Status on File) Date Activated Date Inactivated Comments 02/09/2023 6:50 AM 02/09/2023 2:44 PM Question Answer Comments Code Status Discussion: Unable to Assess Preferences, Provider to review later Care Teams Orchid Superintendent Relationship Specialty Start Date End Date Sylvester Cole [place] [address] PCP - General 05/16/07
--- OUTSIDE RECORDS SUMMARY | 2024-07-30 19:18 | XMS_ITS ---
Author Organization [facility] Address [address] [place] [address] Care Team Providers Care Lunchroom Mother Name Role Phone Unavailable Unavailable Unavailable Surgery Details Not on file Complications Check Surgery Details section. Procedure Estimated Blood Loss Check Surgery Details section. Procedure Findings Check Surgery Details section. Procedure Specimens Taken Check Surgery Details section.
--- OUTSIDE RECORDS SUMMARY | 2024-07-30 19:18 | XMS_ITS | Referral Summary ---
Author Organization [facility] Address [address] [place] [address] Care Team Providers Care Hook Up Driver Name Role Phone Elsewhere, Pcp Primary Care Provider Unavailabl e Source Comments Patient records contain information from all sites at [facility]. For routine questions regarding patient records, call [phone] during business hours, M-F 8:00 AM - 5:00 PM Central Time. Record requests for emergency care only can be directed to [phone] at any time.[facility] Allergies Active Allergy Reactions Criticality Noted [...] drink = 0.6 oz pur e alcohol) [facility] Utilities Answer Date Recorded In the past 12 months has e [employer], gas, oil, or water [employer] threatened to shut off services in your [...] your living situation today? 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 Testing is performed using the Lili B Enterprisess Anti-HIV 1+2 chemiluminescence immunoassay. Test Performed by: [place] [address] Employment Assistant: Panchito Moses III, M.D. Blood 04/05/2013 11:5 5 AM CDT us Juanita Stein M.D. LAB HISTORICAL ORDERS Fin al Result POWERCHART from Last 3 Months or Most Recently Relevant to Health Maintenance Insurance [facility] Care Teams Hook Up Driver Relationship Specialty Start Date End Date Elsewhere, Pcp PCP - General Internal Medicine 01/16/24
[2024-07-30 19:21] VITALS: BP 134/84; PULSE 95; RESP 18; TEMP 36.7; O2SAT 99; BMI 25.7
--- NOTE | 2024-07-30 19:24 | ED_ITS ---
HPI - General Adult General Date Seen: 07/30/24 Chief complaint: Skin/Abscess/Foreign Body Stated complaint: rash on chest and spreading to face Time Seen by Provider: 07/30/24 19:24 History of Present Illness HPI narrative: 34-year-old female [facility] with concern for rash. She has had a rash present for the past 3 or 4 weeks. It has been getting worse over time. She recalls that she had a similar episode last summer, in February. She was seen in the ER, and then in dermatology clinic and they thought her rash was probably due to scabies. She was tried on empiric therapy for scabies but did not get better. Eventually the rash went away on its own. She has been free of rash since roughly April. She started having rash again about 3 or 4 weeks ago. It started as a small pruritic slightly raised macule on her right upper chest and spread across her entire chest now and also she developed other small macules including a few small macules on the backs of her hands, wrists, upper extremities, back of her neck and upper back. No lesions on her abdomen her low back. The rash is very itchy and not responding to Benadryl. No other symptoms. No intraoral lesions. No rash on her palms or soles. No trouble breathing. No fever chills. No new medications or allergen exposures. She does not have any exposure to new pets or animals (she was around her sister's dog beginning 2 weeks ago, but the rash actually started prior to that). Review of medical record. Was in ER 03/18/2024 for a rash on her body. It had started on her chest wall. It did not respond to topical triamcinolone cream. Every hour she was put on a prednisone a oral medication and Zyrtec for itching. Recommended follow-up with dermatology. Related Data Previous Rx's ?Medication ?Instructions ?Recorded hydroxyzine HCl 25 mg tablet 25 mg PO TID PRN #14 tabs 07/30/24 prednisone 20 mg tablet 60 mg (3 x 20 mg) PO DAILY 5 days 07/30/24 #15 tabs Allergies Allergy/AdvReac Type Severity Reaction Status Date / Time adhesive Allergy Rash Verified 07/30/24 19:24 latex Allergy Verified 07/30/24 19:24 mold Allergy Verified 07/30/24 19:24 [facility] Medical History Chronic sinusitis ?J32.9 - Chronic sinusitis, unspecified (ICD-10) Surgical History History of sinus surgery ?Z98.890 - Other specified postprocedural states (ICD-10) Social History Smoking Status: Current every day smoker Do you use any of these nicotine containing products: Vaping Products Nicotine containing products detail: vaping daily Second hand tobacco smoke exposure: Yes How often do you have a drink containing alcohol: monthly or less How often do you have six or more drinks on one occasion: Never AUDIT-C Alcohol total score: 1 Non-prescribed substance use: denies use Caffeine: Yes (coffee 1 cup/day) Exam Narrative: Exam Narrative: Constitutional: Appears well-developed and well-nourished. Alert. Conversant. Non toxic. HENT: Head: Atraumatic. Nose: Nose normal. Mouth/Throat: Oral mucosa is clear and moist. no trismus. Pharynx normal. Tonsils symmetric. No tonsillar enlargement, erythema, or exudate. Eyes: Conjunctivae normal. EOM normal. Pupils equal, round, and reactive to light. No scleral icterus. Neck: Normal range of motion. Neck supple. No tracheal deviation present. Cardiovascular: Normal rate, regular rhythm. No gallop. No friction rub. No murmur heard. Symmetric radial artery pulses Pulmonary/Chest: Effort normal. No stridor. No respiratory distress. No wheezes. No rales. No rhonchi . Musculoskeletal: RUE: Normal range of motion. No tenderness. No deformity LUE: Normal range of motion. No tenderness. No deformity RLE: Normal range of motion. No edema. No tenderness. No deformity LLE: Normal range of motion. No edema. No tenderness. No deformity Neurological: Alert and oriented to person, place, and time. Normal strength. CN II-VII intact. No sensory deficit. GCS eye subscore is 4. GCS verbal subscore is 5. GCS motor subscore is 6. Normal coordination Skin: She does have an erythematous rash most prominent on her chest. Under chest there is an erythematous slightly were raised, fairly widespread maculopapular rash. Some of it is excoriated and scabbed. There is no vesicles or pustules. There is also smaller 3-4 to 5 mm small erythematous macules more diffusely in other areas on her chest and a few macules on her upper back. On her face there is a slightly raised but less erythematous rash on both cheeks under her eyes (Not exactly a malar rash but in a similar distribution). She also has a few areas of excoriated scabs on her radial aspect of both wrists.. No pallor. Normal capillary refill. Psychiatric: Normal mood. Normal affect. Const: Vital Signs, click to edit/add: Vital Signs - 24 hr 07/30/24 19:21 Temperature 98.0 F Pulse Rate [Right Pulse Oximeter] 95 Respiratory Rate 18 Blood Pressure [Ri ght Upper Arm] 134/84 Pulse Oximetry 99 Oxygen Delivery Me thod Room Air Course Vital Signs Vital signs: Initial Vital Signs Temperature 98.0 F 07/30/24 19:21 Temperature Source Temporal Artery Scan 07/30/24 19:21 Pulse Rate 95 07/30/24 19:21 Respiratory Rate 18 07/30/24 19:21 Blood Pressure 134/84 07/30/24 19:21 Blood Pressure Mean 100 07/30/24 19:21 Blood Pressure Position Sitting 07/30/24 19:21 Pulse Oximetry 99 07/30/24 19:21 Oxygen Delivery Method Room Air 07/30/24 19:21 Vital Signs Temperature 98.0 F 07/30/24 19:21 Pulse Rate 95 07/30/24 19:21 Respiratory Rate 18 07/30/24 19:21 Blood Pressure 134/84 07/30/24 19:21 Pulse Oximetry 99 07/30/24 19:21 Oxygen Delivery Method Room Air 07/30/24 19:21 Temperature 98.0 F 07/30/24 19:21 Pulse Rate 95 07/30/24 19:21 Respiratory Rate 18 07/30/24 19:21 Blood Pressure 134/84 07/30/24 19:21 Pulse Oximetry 99 07/30/24 19:21 Oxygen Delivery Method Room Air 07/30/24 19:21 Medications Administered Medications: Discontinued Medications Generic Name Dose Route Start Last Admin Trade Name Teri PRN Reason Stop Dose Admin Hydroxyzine Pamoate 50 mg 07/30/24 19:52 07/30/24 20:03 Hydroxyzine Pamoate 25 Mg Capsule PO 07/30/24 19:53 50 mg ONCE ONE Administration Prednisone 60 mg 07/30/24 19:52 07/30/24 19:58 Prednisone 20 Mg Tablet PO 07/30/24 19:53 60 mg ONCE ONE Administration Medical Decision Making [facility] Narrative Medical decision making narrative: 34-year-old female presents to the ER today with an intensely pruritic rash affecting her chest, upper back, neck, cheeks, with a few scattered lesions on her upper extremities. Rash has been present for the past 3-4 weeks and getting worse over time. There is no evidence for any intraoral involvement, bronchospasm or other evidence that this is anaphylaxis. At this point I do not think she needs epinephrine or hospitalization. There is no desquamation or Nikolsky sign to suggest Apple Nabil's or [place]. No systemic illness to suggest this is an infection or cellulitis. No definite known exposure to pets, bugs, new allergens. Cause of the rash is unclear. At this point think the patient is safe for outpatient follow-up. Patient agrees that she will follow-up with dermatology for re- evaluation. Concern here with a several month lasting rash last fall and recurrence the this winter is that could be something autoimmune going on. She will need follow-up with PCP and/or dermatology. Patient [facility] desiring better itch relief. She has already been using Benadryl. Will try switching from Benadryl to hydroxyzine. Also will put her on a short course of prednisone. Precautions for return to the ER reviewed. Sedation precautions reviewed with hydroxyzine. Discharge Plan Discharge Clinical Impression: Rash Patient Disposition: Home, Self-Care Condition: Stable Instructions: Acute Rash (ED) Additional Instructions: As we discussed, because of your rash is not clear at this time. It is very im portant for you to follow-up for recheck a your regular doctor or with your clerk analyst as soon as possible. If your rash gets worse or you have any trouble breathing or other concerning symptoms, please come back to the ER right away To try to help treat your rash, started on the prednisone (1st dose tonchi, take your next dose tomorrow morning). You can use hydroxyzine 25-50 mg every 8 hours as needed for itching. Be careful because hydroxyzine causes drowsiness and you should not drive a car or operate machinery while on that medication. Prescriptions: New hydroxyzine HCl 25 mg tablet 25 mg PO TID PRNQty: 14 0RF prednisone 20 mg tablet 60 mg PO DAILY 5 Days Qty: 15 0RF Follow Up/Referrals: Sylvester Cole MD [Primary Care Provider] - Stand Alone Forms: [employer] Info Instructions
[2024-07-30] MEDS: predniSONE 20 MG TABLET 60 MG PO (19:58)
[2024-07-30] MEDS: hydrOXYzine pamoate 25 MG CAPSULE 50 MG PO (20:03)
--- OUTSIDE RECORDS SUMMARY | 2024-07-30 20:04 | XMS_ITS | Clinical Summary ---
Author Organization [facility] Address [place], [place] [address] Care Team Providers Care Realty Specialist Name Role Phone Sylvester Cole MD Primary Care Provider [phone] Allergies Active Allergy Reactions Criticality Noted Date [...] 05/13/2024 2:15 PM CDT Nurse/Clinic Staff Only [facility] [address] [place] [address] Immunization/Injection (MMR AND VARICELLA VACCINES ); Immunization/Injection 05/13/2024 Travel 04/29/2024 3:45 PM CDT Nurse/Clinic Staff Only [facility] [address] [place] [address] Immunization/Injection (MMR booster); Error-please disregard (NEED TO [...] on file Legal Sex Female 5:27 AM PATIENT SERVICE REPRESENTATIVE Gender Identity Not on file Sexual Orientation [...] F Vag Lisa 10/12 Term F N [place] Last Filed Vital Signs Vital Sign Reading [...] this topic Medical Devices Implanted Type Area Core Mounter Device Identifier Shelf Expiration Date Model / Serial / Lot Novostitch Pro Meniscal Repair System Implanted:Qty: 1 on 02/09/2023 by Corby Ko MD at [facility] Right: Knee [employer] 08/21/2024 / CTX-A003 / [id number] Novostitch Meniscal Repair System Implanted:Qty: 1 on 02/09/2023 by Corby Ko MD at [facility] Right: Knee 04/29/2023 / CTX-R001 / [id number] Novostitch Meniscal Repair System Implanted:Qty: 1 on 02/09/2023 by Corby Ko MD at [facility] Right: Knee [employer] 07/23/2023 / CTX-R001 / [id number] Novastitch Meniscal Repair Cartridge 2-0 Implanted:Qty: 1 on 02/09/2023 by Corby Ko MD at [facility] Right: Knee 10/17/2023 / CTX-R001 / [id number] Fast Fix Flex Curved Fermenting Cellars Supervisor, Rae, Cannula Set Implanted:Qty: 1 on 02/09/2023 by Corby Ko MD at [facility] Right: Knee [employer] 06/10/2025 / [id number] / [id number] Fast Fix Flex Curved Fermenting Cellars Supervisor, Rae, Cannula Set Implanted:Qty: 1 on 02/09/2023 by Corby Ko MD at [facility] Right: Knee [employer] 06/09/2025 / [id number] / [id number] Procedures Procedure Name Priority Date/Time Associated Diagnosis Comments ANTI HIV 1/2 Routine 07/03/2019 10:53 AM PATIENT SERVICE REPRESENTATIVE Encounter for supervision of normal first in first trimester ANTI HCV Routine 07/03/2019 10:53 AM PATIENT SERVICE REPRESENTATIVE Encounter for supervision of normal first in first trimester PRODUCTION OPERATIONS MANAGER THIN PREP PAP SCREEN IMAGED Routine 09/06/2018 11:20 AM PATIENT SERVICE REPRESENTATIVE Cervical cancer screening from Last 3 Months or Most Recently Relevant to Health Maintenance Results * ANTI HCV (07/03/2019 10:53 AM PATIENT SERVICE REPRESENTATIVE) Pathologist [facility] [place] HEPATITIS C ANTIBODY Non-React claudio Non-React claudio 07/03/2019 7:57 PM PATIENT SERVICE REPRESENTATIVE [facility] Comment:Antibodies to HCV no t detected; does not exclude the possibility of exposure to HCV. Blood BLOOD SPECIMEN / Unknown Venipuncture / Unknown 07/03/2019 10:53 AM PATIENT SERVICE REPRESENTATIVE 07/03/2019 10:55 AM PATIENT SERVICE REPRESENTATIVE us Nicol MARIA SEND OUTS Final R esult [facility] [address] [place] [address], [place] * ANTI HIV 1/2 (07/03/2019 10:53 AM PATIENT SERVICE REPRESENTATIVE) Pathologist [facility] [place] HIV-1/HIV-2 ANTIBODY Non-Reacti ve Non-Reacti ve 07/03/2019 7:52 PM PATIENT SERVICE REPRESENTATIVE [facility] Comment:HIV-1 p24 and HIV-1/ HIV-2 Ab not detected. Blood BLOOD SPECIMEN / Unknown Venipuncture / Unknown 07/03/2019 10:53 AM PATIENT SERVICE REPRESENTATIVE 07/03/2019 10:55 AM PATIENT SERVICE REPRESENTATIVE us Nicol MARIA SEND OUTS Final R esult [facility] [address] [place] [address], [place] * PRODUCTION OPERATIONS MANAGER THIN PREP PAP SCREEN IMAGED (09/06/2018 11:20 AM PATIENT SERVICE REPRESENTATIVE) Case Report Gynecologic Cytology Report Case: [id number] Authorizing Provider: Racquel Tavarez MD Collected: 09/06/2018 1120 Ordering Location: [facility] Received: 09/06/2018 1127 Clinic First Screen: Sondra Leger Specimen: PRODUCTION OPERATIONS MANAGER ThinPrep Vial Screening, Cervical 09/12/2018 9:27 AM PATIENT SERVICE REPRESENTATIVE [facility] INTERPRETATION/ RESULT NEGATIVE FOR INTRAEPITHELIAL LESION OR MALIGNANCY (NIL) (none) 09/12/2018 9:27 AM PATIENT SERVICE REPRESENTATIVE [facility] IMEN ADEQUACY Satisfactory for evaluation Endocervical component present 09/12/2018 9:27 AM PATIENT SERVICE REPRESENTATIVE [facility] HPV REQUEST HPV and PAP 09/12/2018 9:27 AM PATIENT SERVICE REPRESENTATIVE [facility] Date of LMP 08/06/2018 09/12/2018 9:27 AM PATIENT SERVICE REPRESENTATIVE [facility] Last Pap Date 09/05/14 09/12/2018 9:27 AM PATIENT SERVICE REPRESENTATIVE [facility] Last Pap Result NIL 9 9:27 AM PATIENT SERVICE REPRESENTATIVE [facility] Abnormal Pap or [place] Bx in last 5 years No 09/12/2018 9:27 AM PATIENT SERVICE REPRESENTATIVE [facility] Menstrual Status Regular Periods 09/12/2018 9:27 AM PATIENT SERVICE REPRESENTATIVE [facility] [place] Bx Done Today No 09/12/2018 9:27 AM PATIENT SERVICE REPRESENTATIVE [facility] Additional Information None given 09/12/2018 9:27 AM [facility] Automated Review Successful 09/12/2018 9:27 AM [facility] Comment:Specimen processed s uccessfully by automated cnc lathe programmer device, TeevoxPrep Imaging System, [employer] ANCILLARY TESTING PRODUCTION OPERATIONS MANAGER HPV Ordered, Please see separate report 09/12/2018 9:27 AM [facility] Note The pap test is a [...] lesions. Cytology is screened and interpreted at [facility] - [address], [place] [address] and [facility] - [address]; [place] [address] and [facility] - [address]; [place] [address] and [facility] [address]; [place] [address] 09/12/2018 9:27 AM [facility] Other (Cervical) Non-Blood / Unknown 09/06/2018 11:20 AM PATIENT SERVICE REPRESENTATIVE 09/06/2018 11:27 AM [facility] Racquel Tavarez MD PATHOLOGY/CYTOLOGY Lakeisha baez Result [facility] [address] [place] [address], from Last 3 Months or Most Recently Relevant to Health Maintenance Insurance [facility] Member Subscriber Plan / Payer (Ef fective 2016-Present) Name:Shoshana Cobb Relation to Subscriber:Employee Name:[employer] Date of :2002 (Home) Address: [address] [place] [address] [place] [address] Payer ID:Not on file Group ID:Not on file Type:Not on file Address: [address] [facility] [address] [place] [address] Advance Directives * Full Code (Latest Code Status on File) Date Activated Date Inactivated Comments 02/09/2023 6:50 AM 02/09/2023 2:44 PM Question Answer Comments Code Status Discussion: Unable to Assess Preferences, Provider to review later Care Teams Realty Specialist Relationship Specialty Start Date End Date Sylvester Cole [place] [address] PCP - General 05/16/07
--- OUTSIDE RECORDS SUMMARY | 2024-07-30 20:04 | XMS_ITS | Clinical Summary ---
Author Organization [facility] Address [address] [place] [address] Care Team Providers Care Power Line Installer And Repairer Name Role Phone Elsewhere, Pcp Primary Care Provider Unavailabl e Source Comments Patient records contain information from all sites at [facility]. For routine questions regarding patient records, call [phone] during business hours, M-F 8:00 AM - 5:00 PM Central Time. Record requests for emergency care only can be directed to [phone] at any time.[facility] Allergies Active Allergy Reactions Criticality Noted Date [...] drink = 0.6 oz pur e alcohol) [facility] Utilities Answer Date Recorded In the past 12 months has e [employer], gas, oil, or water [employer] threatened to shut off services in your [...] your living situation today? I have a [facility] place to live 01/16/2024 Comments No Sex and Gender Information Value Date Recorded Sex Assigned at Female 01/16/2024 1:03 PM CDT Legal Sex Female 6:02 PM GRADE RECORDER Gender Identity Female 01/16/2024 1:03 PM CDT [...] is negative. Testing is performed using the [employer] Anti-HIV 1+2 chemiluminescence immunoassay. Test Performed by: [place] [address] Pourer Buggy Ladle: Panchito Moses III, M.D. Blood 04/05/2013 11:5 5 AM CDT Juanita Stein M.D. LAB HISTORICAL ORDERS Fin al Result POWERCHART from Last 3 Months or Most Recently Relevant to Health Maintenance Insurance [facility] Care Teams Power Line Installer And Repairer Relationship Specialty Start Date End Date Elsewhere, Pcp PCP - General Internal Medicine 01/16/24
--- OUTSIDE RECORDS SUMMARY | 2024-07-30 20:04 | XMS_ITS | Referral Summary ---
Author Organization [facility] Address [address] [place] [address] Care Team Providers Care Pile Driving Nozzleman Name Role Phone Elsewhere, Pcp Primary Care Provider Unavailabl e Source Comments Patient records contain information from all sites at [facility]. For routine questions regarding patient records, call [phone] during business hours, M-F 8:00 AM - 5:00 PM Central Time. Record requests for emergency care only can be directed to [phone] at any time.[facility] Allergies Active Allergy Reactions Criticality Noted [...] drink = 0.6 oz pur e alcohol) [facility] Utilities Answer Date Recorded In the past 12 months has e [employer], gas, oil, or water [employer] threatened to shut off services in your [...] your living situation today? I have a [facility] place to live 01/16/2024 Comments No Sex and Gender Information Value Date Recorded Sex Assigned at Female 01/16/2024 1:03 PM CDT Legal Sex Female 6:02 PM FAMILY REUNIFICATION SPECIALIST Gender Identity Female 01/16/2024 1:03 PM CDT [...] is negative. Testing is performed using the [employer] Anti-HIV 1+2 chemiluminescence immunoassay. Test Performed by: [place] [address] Agricultural Education Instructor: Panchito Moses III, M.D. Blood 04/05/2013 11:5 5 AM CDT us Juanita Stein M.D. LAB HISTORICAL ORDERS Fin al Result POWERCHART from Last 3 Months or Most Recently Relevant to Health Maintenance Insurance [facility] Care Teams Pile Driving Nozzleman Relationship Specialty Start Date End Date Elsewhere, Pcp PCP - General Internal Medicine 01/16/24
--- OUTSIDE RECORDS SUMMARY | 2024-07-30 20:04 | XMS_ITS ---
Author Organization [facility] Address [address] [place] [address] Care Team Providers Care Warp Tying Machine Knotter Name Role Phone Unavailable Unavailable Unavailable Surgery Details Not on file Complications Check Surgery Details section. Procedure Estimated Blood Loss Check Surgery Details section. Procedure Findings Check Surgery Details section. Procedure Specimens Taken Check Surgery Details section.
== END 2024-07-30 20:18 | disposition home or self-care (01) ==
LOC: ED 20:03
PROVIDERS: Emergency Provider Emergency Medicine; PCP Family Medicine
DX: R21 Rash and other nonspecific skin eruption (principal)
CPT/HCPCS: 99282; 99283; A9270; J7512